=== PATIENT | female | born 1945 | race Caucasian/White ===

== ENCOUNTER 2019-12-10 07:40 | Outpatient (CLI) | payer MEDICARE, SELFPAY ==
[2019-12-10 08:12] LABS: Alanine Aminotransferase 25 U/L (4-35); Albumin Level 4.2 g/dL (3.5-5.1); Alkaline Phosphatase 105 U/L (38-126); Aspartate Amino Transferase 36 U/L (14-36); Bilirubin,Total 0.5 mg/dL (0.2-1.3); Blood Urea Nitrogen 16 mg/dL (7-17); Calcium 8.7 mg/dL (8.4-10.2); Carbon Dioxide 31 mmol/L (22-30); Chloride 102 mmol/L (98-107); Estimated Glomerular Filt Rate > 60; Glucose 91 mg/dL (65-105); Potassium 3.4 mmol/L (3.4-5.0); Sodium 138 mmol/L (137-145)
== END 2019-12-10 07:41 | disposition home or self-care (01) ==
PROVIDERS: PCP Family Medicine; Visit Provider Family Medicine
DX: I10 Essential (primary) hypertension (principal)
CPT/HCPCS: 36415; 80053

== ENCOUNTER 2020-08-04 15:32 | Outpatient (CLI) | payer MEDICARE, SELFPAY ==
[2020-08-04 16:02] LABS: Hematocrit 41.6 % (37.0-47.0); Hemoglobin 13.6 g/dL (12.0-15.0); Mean Corpuscular HGB Conc 32.7 g/dl (32-36); Mean Corpuscular Hemoglobin 29.2 pg (26-34); Mean Corpuscular Volume 89.5 fl (80-100); Mean Platelet Volume 9.7 fl (7.4-10.4); Platelet Count Result 255 k/mm3 (150-375); Red Blood Count 4.65 M/mm3 (4.2-5.4); Red Cell Distribution Width 12.6 % (11.5-14.5); White Blood Count 6.3 K/mm3 (4.5-10.0)
[2020-08-04 16:16] LABS: Alanine Aminotransferase 22 U/L (4-35); Albumin Level 4.4 g/dL (3.5-5.1); Alkaline Phosphatase 116 U/L (38-126); Anion Gap 6 mmol/L (8-16); Aspartate Amino Transferase 31 U/L (14-36); Bilirubin,Total 0.6 mg/dL (0.2-1.3); Blood Urea Nitrogen 15 mg/dL (7-17); Calcium 9.2 mg/dL (8.4-10.2); Carbon Dioxide 32 mmol/L (22-30); Chloride 103 mmol/L (98-107); Cholesterol 206 mg/dL (0-200); Estimated Glomerular Filt Rate > 60; Glucose 124 mg/dL (65-105); HDL Direct 100 mg/dL; Potassium 3.7 mmol/L (3.4-5.0); Sodium 141 mmol/L (137-145); Triglycerides 46 mg/dL (<150)
[2020-08-04 16:27] LABS: LDL Cholesterol Direct 86 mg/dL
[2020-08-04 16:32] LABS: Add Urine Microscopic? NO; Appearance Urine Clear (Clear); Bilirubin Urine Negative (Negative); Blood Urine Negative (Negative); Color Urine Yellow (Yellow); Glucose Urine UA Negative (Negative); Ketones Urine Negative (Negative); Leukocyte Esterase Ur Negative LEU/UL (NEGATIVE); Nitrate Urine Negative (Negative); Protein Urine Negative (Negative); Specific Grav Ur 1.015 (1.001-1.035); Urobilinogen Urine Negative mg/dL (<2.0)
[2020-08-04 19:00] LABS: Hemoglobin A1C 5.6 % (<5.7)
== END 2020-08-04 15:33 | disposition home or self-care (01) ==
LOC: ANHLAB 15:37
PROVIDERS: PCP Family Medicine; Visit Provider Family Medicine
DX: E78.2 Mixed hyperlipidemia (principal); R73.01 Impaired fasting glucose; I10 Essential (primary) hypertension
CPT/HCPCS: 36415; 80053; 80061; 81003; 83036; 84443; 85027

== ENCOUNTER 2020-08-19 12:54 | Outpatient (CLI) | payer MEDICARE, SELFPAY ==
--- NOTE | ~2020-08-19 | CT_ITS ---
EXAMINATION: CT brain wo con DATE: 08/19/2020 13:19 INDICATION: Syncopal episodes, collapse TECHNIQUE: Computed tomography (CT) of the head was performed without intravenous contrast. The mA wa s adjusted according to patient size. Iterative reconstruction technique was employed. Exam dose: 60 5.33 mGy-cm total exam DLP. COMPARISON: None FINDINGS: Left vertebral artery and bilateral carotid siphon internal carotid artery calcifications. Minimal bilateral basal ganglia calcification. No intracranial mass lesion or hemorrhage or cerebrovascular accident. No midline shift or mass effec t. Normal ventricular size. No subdural or epidural hematoma. No fracture or bone destruction of the cranial vault. Included paranasal sinuses and mastoid air cells are normally developed and aerated. IMPRESSION: Cerebral atherosclerosis; no acute intracranial finding Reviewed, dictated and finalized at Location A. Reviewed, dictated and finalized at location B. ET STONE INSERTER
--- NOTE | ~2020-08-19 | US_ITS ---
EXAMINATION: US carotid duplex BI DATE: 08/19/2020 13:36 INDICATION: Syncope and collapse. Cerebral atherosclerosis. TECHNIQUE: Grayscale, color Doppler, and pulsed Doppler images of the cervical carotid arteries were obtained. The degree of vessel stenosis is placed in one of the following categories: normal, <50%, 5 0-69%, >=70% but less than near-occlusion, near-occlusion, or total occlusion. Note that percent sten osis relative to normal distal artery lumen diameter is indirectly measured from velocity measurement s as described by Nate, et al. Radiology 2003; 229:340-346. COMPARISON: None. FINDINGS: RIGHT: The right common carotid artery (CCA) peak systolic velocity (PSV) is 96 cm/s. The right internal car otid artery (ICA) PSV is 109 cm/s. The right ICA end-diastolic velocity (EDV) is 36 cm/s. The right I CA/CCA PSV ratio is 1.14. Grayscale and color Doppler images yield an estimate of <50% diameter reduc tion from plaque in the ICA. The external carotid artery (ECA) PSV is 108 cm/s. There is antegrade fl ow in the right vertebral artery. LEFT: The left CCA PSV is 113 cm/s. The left ICA PSV is 124 cm/s. The left ICA EDV is 42 cm/s. The left ICA /CCA PSV ratio is 1.10. Grayscale and color Doppler images yield an estimate of <50% diameter reducti on from plaque in the ICA. The ECA PSV is 97 cm/s. There is antegrade flow in the left vertebral odalys ry. IMPRESSION: 1. <50% stenosis in the right internal carotid artery. 2. <50% stenosis in the left internal carotid artery. Reviewed, dictated and finalized at location A. LOCK COLLAR SETTER
== END 2020-08-19 12:55 | disposition home or self-care (01) ==
LOC: ANHIMG 13:03
PROVIDERS: PCP Family Medicine; Visit Provider Physician Assistant
DX: R55 Syncope and collapse (principal); R42 Dizziness and giddiness; I65.23 Occlusion and stenosis of bilateral carotid arteries; I67.2 Cerebral atherosclerosis
CPT/HCPCS: 70450; 93880

== ENCOUNTER 2021-04-20 08:25 | Outpatient (CLI) | payer MEDICARE, SELFPAY ==
[2021-04-20 09:03] LABS: Basophils Percent Auto 0.2 % (0.2-1.2); Eosinophils Absolute Auto 0.2 K/mm3 (0-0.3); Eosinophils Percent Auto 2.8 % (0-4.4); Hematocrit 40.5 % (37.0-47.0); Hemoglobin 13.2 g/dL (12.0-15.0); Immature Granulocyte Absolute 0.01 K/mm3 (0.00-0.031); Immature Granulocyte Percent A 0.2 % (0-0.5); Lymphocytes Absolute Auto 1.62 K/mm3 (0.9-3.2); Lymphocytes Percent Auto 24.9 % (18.3-44.2); Mean Corpuscular HGB Conc 32.6 g/dl (32-36); Mean Corpuscular Hemoglobin 29.7 pg (26-34); Mean Corpuscular Volume 91.2 fl (80-100); Mean Platelet Volume 9.5 fl (7.4-10.4); Monocytes Absolute Auto 0.5 K/mm3 (0.1-0.6); Monocytes Percent Auto 7.4 % (2.6-8.5); Neutrophils Absolute Auto 4.2 K/mm3 (1.3-6.7); Neutrophils Percent Auto 64.5 % (45.5-73.1); Platelet Count Result 307 k/mm3 (150-375); Red Blood Count 4.44 M/mm3 (4.2-5.4); Red Cell Distribution Width 12.7 % (11.5-14.5); White Blood Count 6.5 K/mm3 (4.5-10.0)
[2021-04-20 09:03] LABS: Add Urine Microscopic? NO; Appearance Urine Clear (Clear); Bilirubin Urine Negative (Negative); Blood Urine Negative (Negative); Color Urine Yellow (Yellow); Glucose Urine UA Negative (Negative); Ketones Urine Negative (Negative); Leukocyte Esterase Ur Negative LEU/UL (NEGATIVE); Nitrate Urine Negative (Negative); Protein Urine Negative (Negative); Specific Grav Ur 1.015 (1.001-1.035); Urobilinogen Urine Negative mg/dL (<2.0)
[2021-04-20 09:12] LABS: Alanine Aminotransferase 27 U/L (4-35); Albumin Level 4.5 g/dL (3.5-5.1); Alkaline Phosphatase 126 U/L (38-126); Anion Gap 10 mmol/L (8-16); Aspartate Amino Transferase 34 U/L (14-36); Bilirubin,Total 0.6 mg/dL (0.2-1.3); Blood Urea Nitrogen 17 mg/dL (7-17); Calcium 9.2 mg/dL (8.4-10.2); Carbon Dioxide 30 mmol/L (22-30); Chloride 100 mmol/L (98-107); Cholesterol 215 mg/dL (0-200); Estimated Glomerular Filt Rate > 60; Glucose 92 mg/dL (65-110); HDL Direct 90 mg/dL; Potassium 3.5 mmol/L (3.4-5.0); Sodium 140 mmol/L (137-145); Triglycerides 72 mg/dL (<150)
[2021-04-20 09:23] LABS: Hemoglobin A1C 5.8 % (<5.7); LDL Cholesterol Direct 98 mg/dL
== END 2021-04-20 08:26 | disposition home or self-care (01) ==
LOC: ANHLAB 08:29
PROVIDERS: PCP Family Medicine; Visit Provider Physician Assistant
DX: K21.9 Gastro-esophageal reflux disease without esophagitis (principal); K57.30 Diverticulosis of large intestine without perforation or abscess without bleeding; I10 Essential (primary) hypertension; E78.5 Hyperlipidemia, unspecified; R73.01 Impaired fasting glucose; M15.9 Polyosteoarthritis, unspecified; E78.00 Pure hypercholesterolemia, unspecified; Z00.00 Encounter for general adult medical examination without abnormal findings
CPT/HCPCS: 36415; 80053; 80061; 81003; 83036; 84443; 85025

== ENCOUNTER 2021-09-12 09:02 | Outpatient (CLI) | payer MEDICARE, SELFPAY ==
--- NOTE | ~2021-09-12 | XR_ITS ---
XR knee LT min 4V 09/12/2021 09:18 Indication: Chronic knee pain Procedure: 4 views left knee Comparison: 10/07/2010 Findings: Moderate tricompartment osteoarthritis. No fracture, subluxation or dislocation. No signifi cant joint effusion. No foreign bodies. Impression: 1: Moderate tricompartment osteoarthritis. Reviewed, dictated and finalized at location B. Impression: 1: Moderate tricompartment osteoarthritis.
== END 2021-09-12 09:03 | disposition home or self-care (01) ==
PROVIDERS: PCP Family Medicine; Visit Provider Physician Assistant
DX: M17.12 Unilateral primary osteoarthritis, left knee (principal)
CPT/HCPCS: 73564

== ENCOUNTER 2021-10-21 09:34 | Outpatient (CLI) | payer MEDICARE, SELFPAY ==
[2021-10-21 10:26] LABS: Alanine Aminotransferase 24 U/L (4-35); Albumin Level 4.2 g/dL (3.5-5.1); Alkaline Phosphatase 109 U/L (38-126); Anion Gap 6 mmol/L (8-16); Aspartate Amino Transferase 32 U/L (14-36); Bilirubin,Total 0.3 mg/dL (0.2-1.3); Blood Urea Nitrogen 17 mg/dL (7-17); Calcium 8.7 mg/dL (8.4-10.2); Carbon Dioxide 32 mmol/L (22-30); Chloride 102 mmol/L (98-107); Estimated Glomerular Filt Rate > 60; Glucose 112 mg/dL (65-110); Potassium 3.7 mmol/L (3.4-5.0); Sodium 140 mmol/L (137-145)
[2021-10-21 10:28] LABS: Hemoglobin A1C 5.5 % (<5.7)
== END 2021-10-21 09:35 | disposition home or self-care (01) ==
PROVIDERS: PCP Family Medicine; Visit Provider Physician Assistant
DX: R73.01 Impaired fasting glucose (principal); I10 Essential (primary) hypertension
CPT/HCPCS: 36415; 80053; 83036

== ENCOUNTER 2021-11-14 09:53 | Outpatient (CLI) | payer MEDICARE, SELFPAY ==
[2021-11-14 10:48] LABS: Appearance Urine Slightly Cloudy (Clear); Bilirubin Urine Negative (Negative); Blood Urine 3+ (Negative); Glucose Urine UA Negative (Negative); Ketones Urine Negative (Negative); Leukocyte Esterase Ur 3+ LEU/UL (NEGATIVE); Nitrate Urine Negative (Negative); Protein Urine Negative (Negative); Urobilinogen Urine 0.2 mg/dL (<2.0)
[2021-11-14 10:58] LABS: Add Urine Microscopic? YES; Color Urine Light Yellow (Yellow)
[2021-11-14 11:23] LABS: Bacteria Urine Trace /hpf; Squamous Epithelial Cell Urine Rare /hpf (Few); WBC Urine >75 /hpf (0-3)
== END 2021-11-14 09:54 | disposition home or self-care (01) ==
LOC: ANHLAB 09:57
PROVIDERS: PCP Family Medicine; Visit Provider Nurse Practitioner Family
DX: N39.0 Urinary tract infection, site not specified (principal)
CPT/HCPCS: 81001; 87077; 87086; 87186

== ENCOUNTER 2021-12-05 08:38 | Outpatient (CLI) | payer MEDICARE, SELFPAY ==
--- NOTE | ~2021-12-05 | DEXA_ITS ---
Bone Density Report Name: MADISON HENRY Age: 76 Sex: Female Ethnicity: White Date of : 1945 Indication: postmenopausal; screening for osteoporosis; height loss; prior fracture; hysterectomy; Referring Provider: HAYDEE GAN Study: Bone densitometry was performed. Exam Date: December 05, 2021 Accession number: [id number] Bone Density: Region BMD T-score Z-score Classification AP Spine(L1-L4) 0.848 -1.8 0.7 Osteopenia Femoral Neck (Left) 0.677 -1.6 0.6 Osteopenia Total Hip (Left) 0.835 -0.9 1.0 Normal Femoral Neck (Right) 0.711 -1.2 0.9 Osteopenia Total Hip (Right) 0.786 -1.3 0.6 Osteopenia Total Hip Mean 0.811 -1.1 0.8 Osteopenia World Health Organization criteria for BMD impression classify patients as: Normal (T-score at or above -1.0), Osteopenia (T-score between -1.0 and -2.5), or Osteoporosis (T-score at or below -2.5). 10-year Fracture Risk(1): Major Osteoporotic Fracture 18% Hip Fracture 3.6% Reported Risk Factors: [place] (), Neck BMD=0.677, BMI=24.5, previous fracture (1) FRAX(R) Version 3.08. Fracture probability calculated for an untreated patient. Fracture probability may be lower if the patient has received treatment. Clinical Information Provided by Patient: Has had a low trauma fracture Has used the following medications: Vitamin D, Calcium Has the following medical conditions: Hysterectomy Patient maximum height was 64 Menopause Age: 56 Drinks caffeinated beverages Onset of menses at age 12 Number of children 2 Impression: The patient has low bone mass, based on the Total Spine T-score. The patient has an estimated ten-year risk of hip fracture of 3.6% and an estimated ten-year risk of major fracture of 18%, based on the WHO FRAX algorithm. The patient has risk factors, including: previous fracture. Discussion: BONE DENSITY IS LOW AT ONE OR MORE SKELETAL SITES. THE PATIENT'S BMD AND CLINICAL RISK FACTORS CONTRIBUTE TO THIS PATIENT'S INCREASED RISK OF FRACTURE. This patient's lowest T-score is low at one or more skeletal sites. It meets the World Health Organization's (WHO) criteria for ?low bone mass? (T-score between -1.0 and -2.5). The patient's 10-year risk of hip fracture as calculated by FRAX exceeds the threshold where pharmacological therapy is recommended by the National Osteoporosis Foundation (NOF). However, all treatment decisions require clinical judgment and consideration of individual patient factors, including patient preferences, comorbidities, previous drug use, risk factors not captured in the FRAX model (e.g., frailty, falls, vitamin D deficiency, increased bone turnover, interval significant decline in bone density) and possible under or overestimation of fracture risk by FRAX. The patient should follow a healthful lifestyle
== END 2021-12-05 08:39 | disposition home or self-care (01) ==
LOC: ANHIMG 08:41
PROVIDERS: PCP Family Medicine; Visit Provider Physician Assistant
DX: Z78.0 Asymptomatic menopausal state (principal); M85.88 Other specified disorders of bone density and structure, other site; M85.851 Other specified disorders of bone density and structure, right thigh; M85.852 Other specified disorders of bone density and structure, left thigh
CPT/HCPCS: 77080

== ENCOUNTER 2021-12-24 22:06 | Emergency (ER) | payer MEDICARE, SELFPAY ==
--- NOTE | ~2021-12-24 | CT_ITS ---
EXAMINATION: CT shoulder LT wo con DATE: 12/24/2021 23:21 INDICATION: Left shoulder pain, initial encounter TECHNIQUE: Computed tomography (CT) of the left shoulder was performed without intravenous contrast. The dose-length product (DLP) was 137.85 mGy-cm. Automated exposure control and iterative reconstruct ion technique were employed. COMPARISON: None FINDINGS: There is an acute, traumatic, comminuted, closed fracture of the inferior glenoid rim. The fracture fragment is caudally displaced. No additional fracture is identified. The visualized portion s of the thorax are unremarkable. IMPRESSION: 1. Acute displaced and comminuted fracture of the inferior glenoid rim. Reviewed, dictated and finalized at location A.
--- NOTE | ~2021-12-24 | XR_ITS ---
EXAMINATION: XR shoulder LT min 2V INDICATION: Left shoulder pain, initial encounter TECHNIQUE: Four views of the left shoulder are submitted. COMPARISON: None FINDINGS: There is an acute fracture along the inferior margin of the glenoid. Mild osteoarthritis is noted in the acromioclavicular and glenohumeral joints. Soft tissues are unremarkable. IMPRESSION: 1. Acute fracture along the inferior glenoid. Reviewed, dictated and finalized at location A.
[2021-12-24 22:10] VITALS: BP 157/72; PULSE 70; RESP 16; TEMP 36.2; O2SAT 96
--- NOTE | 2021-12-24 23:06 | PC.NURSE ---
Patient taken to CT via w/c.
--- NOTE | 2021-12-24 23:07 | ED.GENADULT ---
HPI - General Adult General Chief complaint: Extremity Injury, Upper Stated complaint: I think I dislocated my shoulder Time Seen by Provider: 12/24/21 22:29 History of Present Illness HPI narrative: Patient is a 76-year-old female that presents to the emergency department with chief complaint of left shoulder injury. The patient reports she [place] the bowling alley and was bowling the bowling ball went 1 direction and her shoulder and body went the other direction. Patient states she landed on her left shoulder reports pain with range of motion. Patient denies numbness or tingling denies head injury denies loss of consciousness. Patient states that she is concerned that she may have dislocated her shoulder. Related Data Home Medications Medication Instructions Recorded Confirmed aspirin 81 mg tablet,delayed 81 mg PO DAILY 06/10/19 10/27/21 release (Adult Aspirin Regimen) Allergies Allergy/AdvReac Type Severity Reaction Status Date / Time No Known Allergies Allergy Verified 12/24/21 22:11 Review of Systems Review of Systems: A 10 system review of systems was completed on the patient and is negative except for what is stated in the HPI. Nursing and ancillary documentation was reviewed. [facility] Past Medical History Medical History GERD (gastroesophageal reflux disease) SVT (supraventricular tachycardia) Surgical History Surgical History History of bunionectomy History of cystocele Status post hysterectomy with oophorectomy Status post tonsillectomy Tibia/fibula fracture Family History Family History Sibling Carcinoma of colon Family history of diabetes mellitus in first degree relative Father Malignant neoplasm of prostate Family history of diabetes mellitus in first degree relative Mother Family history of diabetes mellitus in first degree relative Other Cerebrovascular accident Diabetes mellitus Family history of osteoarthritis Hypertension Social History Social History Second hand tobacco smoke exposure: No Alcohol intake: current Alcohol use details: rare Substance use: never Substance use type: does not use Gender identity (if verbalized by the patient): Female Sexual Orientation (if Verbalized by the Patient): Straight or Heterosexual Exam Narrative: GENERAL: Well-appearing, well-nourished, and in no acute distress. HEAD: Normocephalic, atraumatic. EYES: PERRLA and EOMI. ENT: Nares clear, no rhinorrhea or epistaxis. Mucous membranes moist. NECK: Supple. CHEST: Clear to auscultation. No respiratory distress. HEART: Regular rate and rhythm. No murmur heard. Normal peripheral pulses. ABDOMEN: Soft, nontender, nondistended, normal active bowel sounds. EXTREMITIES: Decreased range of motion of the left shoulder. No edema. SKIN: Warm, dry, no rash. NEURO: No focal deficits. Alert and oriented x3. PSYCH: Normal mood and affect. Course Vital Signs Vital signs: Vital Signs Temperature 36.2 C L 12/24/21 22:10 Pulse Rate 70 12/24/21 22:10 Respiratory Rate 16 12/24/21 22:10 Blood Pressure 157/72 H 12/24/21 22:10 Pulse Oximetry 96 12/24/21 22:10 Oxygen Delivery Room Air 12/24/21 22:10 Temperature 36.5 C 12/25/21 00:01 Pulse Rate 65 12/25/21 00:01 Respiratory Rate 17 12/25/21 00:01 Blood Pressure 158/86 H 12/25/21 00:01 Pulse Oximetry 97 12/25/21 00:01 Oxygen Delivery Room Air 12/24/21 22:10 Medical Decision Making Vital Signs Vital Signs: Vital Signs Temperature 36.2 C L 12/24/21 22:10 Pulse Rate 70 12/24/21 22:10 Respiratory Rate 16 12/24/21 22:10 Blood Pressure 157/72 H 12/24/21 22:10 Pulse Oximetry 96 12/24/21 22:10 Oxygen Delivery Room Air
[2021-12-25 00:01] VITALS: BP 158/86; PULSE 65; RESP 17; TEMP 36.5; O2SAT 97
[2021-12-25] MEDS: HYDROcodone/acetaminophen (*CRX) 5-325 MG TABLET 1 TAB PO (00:21)
== END 2021-12-25 00:48 | disposition home or self-care (01) ==
PROVIDERS: Emergency Provider Emergency Medicine; PCP Family Medicine
DX: S42.142A Displaced fracture of glenoid cavity of scapula, left shoulder, initial encounter for closed fracture (principal); K21.9 Gastro-esophageal reflux disease without esophagitis; Z90.710 Acquired absence of both cervix and uterus; Z79.82 Long term (current) use of aspirin; W18.39XA Other fall on same level, initial encounter; Y93.54 Activity, bowling
CPT/HCPCS: 73030; 73200; 99284; A4565; A9270

== ENCOUNTER 2022-04-04 08:00 | Outpatient (RCR) | payer MEDICARE, SELFPAY ==
[2022-02-28 14:50] VITALS: BP_SYST 90
--- NOTE | 2022-02-28 16:05 | PTOPEVAL1 ---
Evaluation Information Assessment Status Evaluation Diagnosis L displaced fracture of glenoid cavity of scapula Onset 12-24-21 Subjective Information after fall in November used a sling for arm support, at last dr visit, was told can take it off, but she still wears for pain; have been doing arm dangling exercises only; cannot use L arm-- when arm hangs down it hurts and when try to use arm at all, it hurts; Reported Pain Level Pain Score 2: Self Report Additional Pain Score Comments issues getting comfortable for sleeping--cannot tolerate anything touching her L scapula--go between couch and recliner; can sleep less than 1 hour when wake up; Normal for her is about 2 hr; have not used heat/ice --instruct PRN use; Assessment PT Clinical Summary Dominga has the diagnosis of L scapular fracture s/p fall in November; she has been immobilized with a sling and now orders to begin exercises, progress as tolerated. She reports she cannot use her L arm for home and self care tasks,with decreased sleeping tolerance due to pain. And voiced frustration about the continued pain and inability to use her arm. Prior to fall, was active and did not have any restrictions, worked 40 hr/week at [employer]. With the evaluation she has decreased strength and ROM of L shoulder, with all motions increasing her pain. Active shoulder flexion and abduction are 70' and passive is 90'. Skilled PT services are indicated to increase the strength and ROM of her L shoulder, with modalities for pain control and education for home exercises, posture and pain control. Plan of Care Interventions Electrical Stimulation,Hot Pack/Cold Pack,Manual Therapy,Therapeutic Activities,Therapeutic Exercise, pt education Other Interventions cold laser PT Services Indicated Yes Treatment Frequency and 2x/wk for 5 weeks, or less if goals achieved Duration These treatments will address the objective and functional deficits as defined above. The patient will be advanced safely and appropriately in order for the patient to progress towards his/her prior level of function. Additional exercises will be introduced and as well as a comprehensive home exercise program upon discharge, if needed, ?to ensure carryover of functional gains achieved in the clinic. This treatment plan has been reviewed and agreement upon by the patient.
[2022-04-04 08:00] VITALS: BP_SYST 140
--- NOTE | 2022-04-04 08:43 | PTOPDC ---
Assessment and note entered by Page Crawley, PT Evaluation Information Assessment Status Discharge Diagnosis L displaced fracture of glenoid cavity of scapula Onset 12-24-21 Subjective Information Pat reports: shoulder is doing great; reaching behind back is the only one that still gives me trouble; plan to go to work tonight; see this afternoon and going to get a return to work release; will continue with the exercises at home ; ready to be released from therapy; Reported Pain Level Pain Score Self Report L shoulder Additional Pain Score Comments pain range 0-4/10; sleeping about 2 hours at time -which is her norm; increase pain with lying on her L side & over use of arm; to decrease pain, using heating pad, rest, tylenol arthritis PRN; taking meloxicam for knee OA; reports can use arm in the kitchen as long as able without hurting; can put hair up in pony tail; Assessment PT Clinical Summary Valeria has received 8 PT sessions for her L shoulder. Compared to the initial evaluation, she has improved in all areas: decrease pain rating at low and high rating; improved sleeping tolerance; use of UE for home and self care tasks; ROM and strength in all 4 directions; progression of HEP and posture of shoulder; The goals were partially achieved. She is independent with her home exercise program and wants to be d/c from PT, to continue with her exercises on her own and return to work. Discharge PT. Plan of Care PT Services Indicated No
== END 2022-04-04 11:40 | disposition home or self-care (01) ==
LOC: ANHPT 08:00
PROVIDERS: PCP Family Medicine; Visit Provider Orthopaedic Surgery
DX: S42.14 Fracture of glenoid cavity of scapula (principal); S42.15 Fracture of neck of scapula
CPT/HCPCS: 97110; 97112; 97140; 97161

== ENCOUNTER 2022-04-27 07:16 | Outpatient (CLI) | payer MEDICARE, SELFPAY ==
[2022-04-27 07:54] LABS: Basophils Percent Auto 0.2 % (0.2-1.2); Eosinophils Absolute Auto 0.2 K/mm3 (0-0.3); Eosinophils Percent Auto 3.7 % (0-4.4); Hematocrit 37.2 % (37.0-47.0); Hemoglobin 12.2 g/dL (12.0-15.0); Immature Granulocyte Absolute 0.01 K/mm3 (0.00-0.031); Immature Granulocyte Percent A 0.2 % (0-0.5); Lymphocytes Absolute Auto 1.37 K/mm3 (0.9-3.2); Lymphocytes Percent Auto 26.4 % (18.3-44.2); Mean Corpuscular HGB Conc 32.8 g/dl (32-36); Mean Corpuscular Hemoglobin 30.2 pg (26-34); Mean Corpuscular Volume 92.1 fl (80-100); Mean Platelet Volume 9.3 fl (7.4-10.4); Monocytes Absolute Auto 0.4 K/mm3 (0.1-0.6); Monocytes Percent Auto 6.9 % (2.6-8.5); Neutrophils Absolute Auto 3.3 K/mm3 (1.3-6.7); Neutrophils Percent Auto 62.6 % (45.5-73.1); Platelet Count Result 272 k/mm3 (150-375); Red Blood Count 4.04 M/mm3 (4.2-5.4); Red Cell Distribution Width 13.7 % (11.5-14.5); White Blood Count 5.2 K/mm3 (4.5-10.0)
[2022-04-27 08:04] LABS: Alanine Aminotransferase 50 U/L (6-35); Albumin Level 4.6 g/dL (3.5-5.1); Alkaline Phosphatase 124 U/L (38-126); Anion Gap 11 mmol/L (8-16); Aspartate Amino Transferase 42 U/L (14-36); Bilirubin,Total 0.5 mg/dL (0.2-1.3); Blood Urea Nitrogen 18 mg/dL (7-17); Calcium 8.8 mg/dL (8.4-10.2); Carbon Dioxide 27 mmol/L (22-30); Chloride 103 mmol/L (98-107); Cholesterol 212 mg/dL (0-200); Estimated Glomerular Filt Rate > 60; Glucose 94 mg/dL (65-110); HDL Direct 91 mg/dL; Potassium 3.3 mmol/L (3.4-5.0); Sodium 141 mmol/L (137-145); Triglycerides 82 mg/dL (<150)
[2022-04-27 08:08] LABS: Hemoglobin A1C 5.8 % (<5.7)
[2022-04-27 08:15] LABS: LDL Cholesterol Direct 74 mg/dL
[2022-04-27 08:20] LABS: Add Urine Microscopic? YES; Appearance Urine Clear (Clear); Bilirubin Urine Negative (Negative); Blood Urine 1+ (Negative); Color Urine Straw (Yellow); Glucose Urine UA Negative (Negative); Ketones Urine Negative (Negative); Leukocyte Esterase Ur Trace LEU/UL (NEGATIVE); Nitrate Urine Negative (Negative); Protein Urine Negative (Negative); RBC Urine 0-2 /hpf (0-2); Specific Grav Ur 1.009 (1.001-1.035); Squamous Epithelial Cell Urine Rare /hpf (Few); Urobilinogen Urine Negative mg/dL (<2.0); WBC Clumps Urine Present /HPF
== END 2022-04-27 07:17 | disposition home or self-care (01) ==
LOC: ANHLAB 07:19
PROVIDERS: PCP Family Medicine; Visit Provider Physician Assistant
DX: E78.5 Hyperlipidemia, unspecified (principal); I10 Essential (primary) hypertension; R73.01 Impaired fasting glucose
CPT/HCPCS: 36415; 80053; 80061; 81001; 83036; 84443; 85025

== ENCOUNTER 2022-06-05 06:32 | Outpatient (CLI) | payer MEDICARE, SELFPAY ==
[2022-06-05 07:22] LABS: Basophils Percent Auto 0.2 % (0.2-1.2); Eosinophils Absolute Auto 0.2 K/mm3 (0-0.3); Eosinophils Percent Auto 3.5 % (0-4.4); Hematocrit 36.5 % (37.0-47.0); Hemoglobin 11.9 g/dL (12.0-15.0); Immature Granulocyte Absolute 0.01 K/mm3 (0.00-0.031); Immature Granulocyte Percent A 0.2 % (0-0.5); Lymphocytes Absolute Auto 1.46 K/mm3 (0.9-3.2); Lymphocytes Percent Auto 24.2 % (18.3-44.2); Mean Corpuscular HGB Conc 32.6 g/dl (32-36); Mean Corpuscular Hemoglobin 29.2 pg (26-34); Mean Corpuscular Volume 89.7 fl (80-100); Mean Platelet Volume 9.7 fl (7.4-10.4); Monocytes Absolute Auto 0.5 K/mm3 (0.1-0.6); Neutrophils Absolute Auto 3.8 K/mm3 (1.3-6.7); Neutrophils Percent Auto 62.9 % (45.5-73.1); Platelet Count Result 320 k/mm3 (150-375); Red Blood Count 4.07 M/mm3 (4.2-5.4); Red Cell Distribution Width 12.7 % (11.5-14.5)
[2022-06-05 07:41] LABS: Alanine Aminotransferase 21 U/L (6-35); Albumin Level 4.4 g/dL (3.5-5.1); Alkaline Phosphatase 101 U/L (38-126); Anion Gap 7 mmol/L (8-16); Aspartate Amino Transferase 27 U/L (14-36); Bilirubin,Total 0.4 mg/dL (0.2-1.3); Blood Urea Nitrogen 18 mg/dL (7-17); Calcium 8.5 mg/dL (8.4-10.2); Carbon Dioxide 28 mmol/L (22-30); Chloride 100 mmol/L (98-107); Estimated Glomerular Filt Rate > 60; Glucose 90 mg/dL (65-110); Potassium 4.1 mmol/L (3.4-5.0); Sodium 135 mmol/L (137-145)
== END 2022-06-05 06:33 | disposition home or self-care (01) ==
LOC: ANHLAB 06:35
PROVIDERS: PCP Family Medicine; Visit Provider Physician Assistant
DX: I10 Essential (primary) hypertension (principal); R23.3 Spontaneous ecchymoses
CPT/HCPCS: 36415; 80053; 85025

== ENCOUNTER 2022-09-13 07:23 | Outpatient (CLI) | payer MEDICARE, SELFPAY ==
[2022-09-13 08:20] LABS: Basophils Percent Auto 0.2 % (0.2-1.2); Eosinophils Absolute Auto 0.3 K/mm3 (0-0.3); Eosinophils Percent Auto 6.1 % (0-4.4); Hematocrit 37.1 % (37.0-47.0); Hemoglobin 11.8 g/dL (12.0-15.0); Immature Granulocyte Absolute 0.02 K/mm3 (0.00-0.031); Immature Granulocyte Percent A 0.4 % (0-0.5); Lymphocytes Absolute Auto 1.43 K/mm3 (0.9-3.2); Lymphocytes Percent Auto 28.2 % (18.3-44.2); Mean Corpuscular HGB Conc 31.8 g/dl (32-36); Mean Corpuscular Hemoglobin 28.5 pg (26-34); Mean Corpuscular Volume 89.6 fl (80-100); Mean Platelet Volume 9.8 fl (7.4-10.4); Monocytes Absolute Auto 0.4 K/mm3 (0.1-0.6); Monocytes Percent Auto 8.7 % (2.6-8.5); Neutrophils Absolute Auto 2.9 K/mm3 (1.3-6.7); Neutrophils Percent Auto 56.4 % (45.5-73.1); Platelet Count Result 313 k/mm3 (150-375); Red Blood Count 4.14 M/mm3 (4.2-5.4); White Blood Count 5.1 K/mm3 (4.5-10.0)
[2022-09-13 08:32] LABS: Iron 49 ug/dL (37-170)
[2022-09-13 08:41] LABS: Percent Iron Saturation 13 % (20-50)
[2022-09-13 09:22] LABS: Folic Acid 11.3 ng/mL (2.76->20)
== END 2022-09-13 07:24 | disposition home or self-care (01) ==
LOC: ANHLAB 07:26
PROVIDERS: PCP Family Medicine; Visit Provider Physician Assistant
DX: D64.9 Anemia, unspecified (principal)
CPT/HCPCS: 36415; 82607; 82728; 82746; 83540; 83550; 85025

== ENCOUNTER 2022-12-12 08:07 | Outpatient (CLI) | payer MEDICARE, SELFPAY ==
[2022-12-12 08:36] LABS: Basophils Percent Auto 0.1 % (0.2-1.2); Eosinophils Absolute Auto 0.4 K/mm3 (0-0.3); Eosinophils Percent Auto 6.3 % (0-4.4); Hematocrit 38.1 % (37.0-47.0); Hemoglobin 12.2 g/dL (12.0-15.0); Immature Granulocyte Absolute 0.01 K/mm3 (0.00-0.031); Immature Granulocyte Percent A 0.1 % (0-0.5); Lymphocytes Absolute Auto 1.47 K/mm3 (0.9-3.2); Lymphocytes Percent Auto 21.6 % (18.3-44.2); Mean Corpuscular Hemoglobin 29.1 pg (26-34); Mean Corpuscular Volume 90.9 fl (80-100); Mean Platelet Volume 9.7 fl (7.4-10.4); Monocytes Absolute Auto 0.5 K/mm3 (0.1-0.6); Monocytes Percent Auto 7.2 % (2.6-8.5); Neutrophils Absolute Auto 4.4 K/mm3 (1.3-6.7); Neutrophils Percent Auto 64.7 % (45.5-73.1); Platelet Count Result 281 k/mm3 (150-375); Red Blood Count 4.19 M/mm3 (4.2-5.4); Red Cell Distribution Width 13.4 % (11.5-14.5); White Blood Count 6.8 K/mm3 (4.5-10.0)
[2022-12-12 08:45] LABS: Hemoglobin A1C 5.6 % (<5.7)
[2022-12-12 08:49] LABS: Alanine Aminotransferase 84 U/L (6-35); Albumin Level 4.4 g/dL (3.5-5.1); Alkaline Phosphatase 139 U/L (38-126); Anion Gap 6 mmol/L (8-16); Aspartate Amino Transferase 72 U/L (14-36); Bilirubin,Total 0.3 mg/dL (0.2-1.3); Blood Urea Nitrogen 20 mg/dL (7-17); Calcium 8.5 mg/dL (8.4-10.2); Carbon Dioxide 31 mmol/L (22-30); Chloride 102 mmol/L (98-107); Estimated Glomerular Filt Rate > 60; Glucose 113 mg/dL (65-110); Potassium 3.5 mmol/L (3.4-5.0); Sodium 139 mmol/L (137-145)
[2022-12-12 08:59] LABS: Iron 65 ug/dL (37-170)
[2022-12-12 09:07] LABS: Percent Iron Saturation 17 % (20-50)
[2022-12-12 09:54] LABS: Folic Acid 9.4 ng/mL (2.76->20)
== END 2022-12-12 08:08 | disposition home or self-care (01) ==
LOC: ANHLAB 08:09
PROVIDERS: PCP Family Medicine; Visit Provider Physician Assistant
DX: D64.9 Anemia, unspecified (principal); E78.5 Hyperlipidemia, unspecified; R73.01 Impaired fasting glucose
CPT/HCPCS: 36415; 80053; 82607; 82728; 82746; 83036; 83540; 83550; 85025

== ENCOUNTER 2022-12-19 08:42 | Outpatient (CLI) | payer MEDICARE, SELFPAY ==
--- NOTE | ~2022-12-19 | US_ITS ---
US right upper quadrant INDICATION: Abnormal liver function tests. PROCEDURE: Realtime right upper abdominal ultrasound. COMPARISON: CT dated 11/02/2014 FINDINGS: The pancreas is normal without focal mass or pancreatic ductal dilation. Liver echotexture is normal without focal mass or intrahepatic biliary dilatation. There is normal directional flow i n the portal vein. The gallbladder is normal without stones, gallbladder wall thickening or pericholecystic fluid. Comm on bile duct measures 9.8 mm. IMPRESSION: 1: Mildly dilated common bile duct, possibly related to patient's age. Reviewed, dictated and finalized at location L.
== END 2022-12-19 08:43 | disposition home or self-care (01) ==
PROVIDERS: PCP Family Medicine; Visit Provider Physician Assistant
DX: R79.89 Other specified abnormal findings of blood chemistry (principal); K83.8 Other specified diseases of biliary tract
CPT/HCPCS: 76705

== ENCOUNTER 2023-02-06 07:21 | Outpatient (CLI) | payer MEDICARE, SELFPAY ==
[2023-02-06 08:19] LABS: Alanine Aminotransferase 55 U/L (6-35); Albumin Level 4.4 g/dL (3.5-5.1); Alkaline Phosphatase 163 U/L (38-126); Anion Gap 7 mmol/L (8-16); Aspartate Amino Transferase 58 U/L (14-36); Bilirubin,Total 0.4 mg/dL (0.2-1.3); Blood Urea Nitrogen 17 mg/dL (7-17); Calcium 8.7 mg/dL (8.4-10.2); Carbon Dioxide 30 mmol/L (22-30); Chloride 99 mmol/L (98-107); Estimated Glomerular Filt Rate > 60; Glucose 93 mg/dL (65-110); Potassium 3.8 mmol/L (3.4-5.0); Sodium 136 mmol/L (137-145)
== END 2023-02-06 07:22 | disposition home or self-care (01) ==
PROVIDERS: PCP Family Medicine; Visit Provider Physician Assistant
DX: R79.89 Other specified abnormal findings of blood chemistry (principal)
CPT/HCPCS: 36415; 80053; 82728; 86038

== ENCOUNTER 2023-02-19 08:42 | Outpatient (CLI) | payer MEDICARE, SELFPAY ==
[2023-02-19 10:27] LABS: Hepatitis B Surface Antigen Negative (Negative)
[2023-02-19 10:32] LABS: HAV RESULT Negative (Negative); Hepatitis B Core IgM Result Negative (Negative)
[2023-02-19 10:44] LABS: Hepatitis C Virus Antibody Negative (Negative)
== END 2023-02-19 08:43 | disposition home or self-care (01) ==
PROVIDERS: PCP Family Medicine; Visit Provider Family Medicine
DX: R74.8 Abnormal levels of other serum enzymes (principal); R94.5 Abnormal results of liver function studies
CPT/HCPCS: 36415; 80074

== ENCOUNTER 2023-06-07 07:15 | Outpatient (CLI) | payer MEDICARE, SELFPAY ==
[2023-06-07 07:57] LABS: Hematocrit 39.5 % (37.0-47.0); Hemoglobin 12.8 g/dL (12.0-15.0); Mean Corpuscular HGB Conc 32.4 g/dl (32-36); Mean Corpuscular Hemoglobin 29.2 pg (26-34); Mean Corpuscular Volume 90.2 fl (80-100); Mean Platelet Volume 9.5 fl (7.4-10.4); Platelet Count Result 276 k/mm3 (150-375); Red Blood Count 4.38 M/mm3 (4.2-5.4); Red Cell Distribution Width 13.4 % (11.5-14.5); White Blood Count 5.1 K/mm3 (4.5-10.0)
[2023-06-07 08:29] LABS: Alanine Aminotransferase 23 U/L (6-35); Albumin Level 4.3 g/dL (3.5-5.1); Alkaline Phosphatase 111 U/L (38-126); Anion Gap 8 mmol/L (8-16); Aspartate Amino Transferase 31 U/L (14-36); Bilirubin,Total 0.6 mg/dL (0.2-1.3); Blood Urea Nitrogen 21 mg/dL (7-17); Calcium 8.8 mg/dL (8.4-10.2); Carbon Dioxide 28 mmol/L (22-30); Chloride 104 mmol/L (98-107); Cholesterol 206 mg/dL (0-200); Estimated Glomerular Filt Rate > 60; Glucose 100 mg/dL (65-110); HDL Direct 88 mg/dL; Potassium 3.6 mmol/L (3.4-5.0); Sodium 140 mmol/L (137-145); Triglycerides 63 mg/dL (<150)
[2023-06-07 08:39] LABS: LDL Cholesterol Direct 85 mg/dL
[2023-06-07 09:01] LABS: Appearance Urine Clear (Clear); Bilirubin Urine Negative (Negative); Blood Urine Negative (Negative); Color Urine Yellow (Yellow); Glucose Urine UA Negative (Negative); Ketones Urine Negative (Negative); Leukocyte Esterase Ur Negative LEU/UL (NEGATIVE); Nitrate Urine Negative (Negative); Protein Urine Negative (Negative); Specific Grav Ur 1.021 (1.001-1.035); Urobilinogen Urine 0.2 mg/dL (<2.0); pH Urine 5.5 (5.0-9.0)
[2023-06-07 09:07] LABS: Add Urine Microscopic? NO
[2023-06-07 10:53] LABS: Hemoglobin A1C 5.6 % (<5.7)
== END 2023-06-07 07:16 | disposition home or self-care (01) ==
PROVIDERS: PCP Family Medicine; Visit Provider Family Medicine
DX: E04.1 Nontoxic single thyroid nodule (principal); E78.00 Pure hypercholesterolemia, unspecified; R73.01 Impaired fasting glucose; I10 Essential (primary) hypertension; Z00.00 Encounter for general adult medical examination without abnormal findings
CPT/HCPCS: 36415; 80053; 80061; 81003; 83036; 84443; 85027

== ENCOUNTER 2023-07-30 07:12 | Outpatient (CLI) | payer MEDICARE, SELFPAY ==
[2023-07-30 08:01] LABS: Alanine Aminotransferase 34 U/L (6-35); Albumin Level 4.4 g/dL (3.5-5.1); Alkaline Phosphatase 125 U/L (38-126); Anion Gap 7 mmol/L (8-16); Aspartate Amino Transferase 42 U/L (14-36); Bilirubin,Total 0.5 mg/dL (0.2-1.3); Blood Urea Nitrogen 17 mg/dL (7-17); Calcium 8.7 mg/dL (8.4-10.2); Carbon Dioxide 29 mmol/L (22-30); Chloride 100 mmol/L (98-107); Estimated Glomerular Filt Rate > 60; Glucose 89 mg/dL (65-110); Potassium 3.4 mmol/L (3.4-5.0); Sodium 136 mmol/L (137-145)
== END 2023-07-30 07:13 | disposition home or self-care (01) ==
PROVIDERS: PCP Family Medicine; Visit Provider Physician Assistant
DX: R74.8 Abnormal levels of other serum enzymes (principal)
CPT/HCPCS: 36415; 80053

== ENCOUNTER 2023-09-19 14:47 | Outpatient (CLI) | payer MEDICARE, SELFPAY ==
--- NOTE | ~2023-09-19 | XR_ITS ---
EXAMINATION: XR knee LT 3V DATE: 09/19/2023 15:10 INDICATION: Left knee pain TECHNIQUE: Three views of the left knee were obtained. COMPARISON: 09/12/2021 FINDINGS: Alignment is normal. No fracture or osteochondral lesion. There is tricompartmental osteoar thritis of the knee, moderate to severe in the medial compartment with interval worsening, otherwise moderate. There is a small knee joint effusion. Soft tissues are unremarkable. IMPRESSION: 1. Tricompartmental osteoarthritis with interval worsening in the medial compartment. Reviewed, dictated and finalized at location F. IMPRESSION: 1. Tricompartmental osteoarthritis with interval worsening in the medial compar tment.
== END 2023-09-19 14:48 | disposition home or self-care (01) ==
PROVIDERS: PCP Family Medicine; Visit Provider Physician Assistant
DX: M17.12 Unilateral primary osteoarthritis, left knee (principal)
CPT/HCPCS: 73562

== ENCOUNTER 2023-11-20 11:15 | Outpatient (RCR) | payer MEDICARE, SELFPAY ==
--- NOTE | 2023-10-26 10:19 | OPREHPOC ---
Outpatient Therapy Plan of Care This is a Multidisciplinary Plan of Care that may contain components documented by all disciplines (PT, OT, and ST.) PT Problem 1 PT Problem #1 Knowledge Deficit PT Goal 1 Goal [place] with HEP Target Visit 4 PT Problem 2 PT Problem #2 Impaired Range of Motion PT Goal 1 Goal Achieve 10+ degrees of left ankle dorsiflexion to assist with terminal stance during gait Target Visit 8 PT Goal 2 Goal Improve L knee flexion ROM to 115 degrees plus for improved functional bend as structural integrity allows Target Visit 8 PT Problem 3 PT Problem #3 Impaired Strength PT Goal 1 Goal Improve tino hip flexion strength to 4+/5 to improve foot clearance and swing phase Target Visit 8 PT Goal 2 Goal Improve tino hip abduction strength to 4+/5 to improve lateral hip stability and knee stability during ADLs Target Visit 8
--- NOTE | 2023-10-26 10:20 | PTOPEVAL1 ---
Assessment and note entered by Acosta Terrell, PT Evaluation Information Assessment Status Evaluation Diagnosis Osteoarthritis of left knee, Left knee pain Onset 2021 Subjective Information Patient likes to dance and she has been unable to do it for quite a while. She would like to have TKA as soon as she can. She reports a lot of stiffness and difficulty with bending and walking after being sedentary for a while. 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 She has been taking Aleve for pain and inflammation. Denies any other pain reports in her body at this time. Reported Pain Level Pain Score 0: Self Report Assessment PT Clinical Summary Patient presents with structural knee ROM deficits indicated by firm end feel in both ranges. Weakness noted in tino hips and loss of full dorsiflexion in left ankle. Patient will benefit from skilled therapy for pre-operative strengthening and ROM training for smooth transition into post operative therapy. No concerns at this time with activity limitation. Plan of Care Interventions Electrical Stimulation,Gait Training,Hot Pack/Cold Pack,Manual Therapy,Neuro Re-education, Therapeutic Activities,Therapeutic Exercise PT Services Indicated Yes Treatment Frequency and 2x/week for 8 visits Duration These treatments will address the objective and functional deficits as defined above. The patient will be advanced safely and appropriately in order for the patient to progress towards his/her prior level of function. Additional exercises will be introduced and as well as a comprehensive home exercise program upon discharge, if needed, ?to ensure carryover of functional gains achieved in the clinic. This treatment plan has been reviewed and agreement upon by the patient.
--- NOTE | 2023-11-20 12:02 | OPREHPOC ---
Outpatient Therapy Plan of Care This is a Multidisciplinary Plan of Care that may contain components documented by all disciplines (PT, OT, and ST.) PT Problem 1 PT Problem #1 Knowledge Deficit PT Goal 1 Goal [place] with HEP Target Visit 4 Progress Met PT Problem 2 PT Problem #2 Impaired Range of Motion PT Goal 1 Goal Achieve 10+ degrees of left ankle dorsiflexion to assist with terminal stance during gait Target Visit 8 Progress Met PT Goal 2 Goal Improve L knee flexion ROM to 115 degrees plus for improved functional bend as structural integrity allows Target Visit 8 Progress Met PT Problem 3 PT Problem #3 Impaired Strength PT Goal 1 Goal Improve tino hip flexion strength to 4+/5 to improve foot clearance and swing phase Target Visit 8 Progress Met PT Goal 2 Goal Improve tino hip abduction strength to 4+/5 to improve lateral hip stability and knee stability during ADLs Target Visit 8 Progress Partially Met
--- NOTE | 2023-11-20 12:02 | PTOPDC ---
Assessment and note entered by Acosta Terrell, PT Evaluation Information Assessment Status Discharge Diagnosis Osteoarthritis of left knee, Left knee pain Onset 2021 Subjective Information Patient reports that she is still struggling with pain. Scheduled for cardiac clearance next week. She feels she is ready for surgery as soon as it would be available. Feels comfortable with HEP and plans to continue independently. Assessment PT Clinical Summary Patient has made both ROM and strength progress at this time. She continues to have palpable end range difficulty in both flexion and extension. Overall patient appears to be at a physical position to be prepared for knee arthroplasty. Patient is compliant and independent with HEP. Plan of Care PT Services Indicated D/C to HEP
== END 2023-11-20 12:56 | disposition home or self-care (01) ==
LOC: ANHGOSHPT 11:15
PROVIDERS: PCP Family Medicine; Visit Provider Orthopaedic Surgery
DX: M17.12 Unilateral primary osteoarthritis, left knee (principal)
CPT/HCPCS: 97110; 97161; 97530

== ENCOUNTER 2023-11-29 08:25 | Outpatient (CLI) | payer MEDICARE, SELFPAY ==
--- NOTE | ~2023-11-29 | NM_ITS ---
EXAMINATION: NM rashida stress w perfusion DATE: 11/29/2023 10:19 INDICATION: Abnormal electrocardiogram. Encounter for preprocedural cardiovascular evaluation. TECHNIQUE: Rest images were obtained following intravenous administration of 10.3 mCi Tc99m tetrofosm in (Myoview). The patient was infused intravenously with Lexiscan (regadenoson). Then, 33.0 mCi Tc99m tetrofosmin (Myoview) was administered intravenously, and stress images were obtained. Data was ray nstructed into short axis and horizontal and vertical long axis SPECT images. Gated SPECT images were also obtained. COMPARISON: Myocardial perfusion imaging 10/05/2014 FINDINGS: There is no definite reversible or fixed perfusion abnormality to suggest ischemia or infar ction. There is no segmental wall motion abnormality. Left ventricular ejection fraction measures > 70%. IMPRESSION: 1. No definite ischemia or infarct. 2. Normal left ventricular ejection fraction measuring >70%. Reviewed, dictated and finalized at location A.
--- NOTE | 2023-11-29 09:14 | EST_ITS ---
Patient Info Name: Dominga Pierre Age: 78 years : 1945 Gender: Female Ht: 64 in Wt: 140 lbs BSA: 1.70 m2 HR: 66 bpm BP: 169 / 86 mmHg Heart Rhythm: Sinus Rhythm Exam Date: 11/29/2023 9:24 AM Exam Location: [facility] Patient Status: Outpatient Admit Date: 11/29/2023 Staff Ordering Physician: Stevie Domingo DO Attending Provider: Stevie Domingo DO Exercise Technologist: Cristine Donohue CT Exercise Physician: Stevie Domingo DO Exam Type: CA stress rashida w NM Study Info Indications Z01.810 - Encounter for preprocedural cardiovascular examination A regadenoson stress test was performed. Summary 1. 1. Negative lexiscan stress test for ischemic ST changes by ECG criteria. 2. 2. Baseline hypertension. 3. 3. Nuclear scan to follow and will be reported separately. Please correlate with it. 4. 4. Patient informed of the above results. Protocol: Lexiscan Stress ECG Details Stage: REST Duration (min): 1 min : 57 sec HR (bpm): 68 SBP (mmHg): 169 DBP (mmHg): 86 Stage: REST Duration (min): 10 min : 35 sec HR (bpm): 60 SBP (mmHg): 169 DBP (mmHg): 86 Stage: STAGE 1 Duration (min): 0 min : 59 sec HR (bpm): 102 SBP (mmHg): 169 DBP (mmHg): 86 Stage: RECOVERY Duration (min): 1 min : 0 sec HR (bpm): 90 SBP (mmHg): 200 DBP (mmHg): 93 Stage: RECOVERY Duration (min): 2 min : 0 sec HR (bpm): 78 SBP (mmHg): 200 DBP (mmHg): 93 Stage: RECOVERY Duration (min): 3 min : 0 sec HR (bpm): 79 SBP (mmHg): 200 DBP (mmHg): 93 Stage: RECOVERY Duration (min): 3 min : 59 sec HR (bpm): 73 SBP (mmHg): 169 DBP (mmHg): 88 Rest HR: 60 bpm Peak HR: 102 bpm Rest Sys BP: 169 mmHg Peak Sys BP: 209 mmHg Max Pred HR: 142 bpm % Max Pred HR: 72 % Target HR: 121 bpm Max RPP: 21,318 bpm*mmHg Termination Reason: Completed protocol Cardiac Symptoms: Shortness of breath Total Time: 1 min : 0 sec Rest Nava BP: 86 mmHg Peak Nava BP: 97 mmHg Total Dose: 0.4 mg Resting ECG Sinus rhythm. Stress ECG No ST changes. Arrhythmias None. Report Signatures
== END 2023-11-29 08:26 | disposition home or self-care (01) ==
PROVIDERS: PCP Family Medicine; Visit Provider Internal Medicine Cardiovascular Disease
DX: Z01.810 Encounter for preprocedural cardiovascular examination (principal)
CPT/HCPCS: 78452; 93017; A9502; J2785

== ENCOUNTER 2023-12-07 07:10 | Outpatient (CLI) | payer MEDICARE, SELFPAY ==
--- NOTE | ~2023-12-07 | CT_ITS ---
EXAMINATION: CT LE LT wo con DATE: 12/07/2023 09:44 INDICATION: Melanoma primary osteoarthritis of the left knee TECHNIQUE: High resolution computed tomography (CT) of the left lower extremity from the hip through the ankle was performed without intravenous contrast. Additional sagittal and coronal reconstructions were performed. Automated exposure control and iterative reconstruction technique were employed. Th e dose-length product was 1570.04 mGy-cm. COMPARISON: Left knee radiographs dated 09/28/2023 FINDINGS: No acute fracture. Screw fixation at the first metatarsal, correlate with surgical history. There is severe joint space narrowing in the medial compartment of the left kidney resulting in mild genu varu m, similar degree as seen on the prior standing radiographs. There is subarticular sclerosis and cyst ic changes at the medial tibial plateau and juxtaposed anterior medial femoral condyle. There are jayme e small central subchondral osteophyte of the posterior weightbearing medial femoral condyle. Small m arginal osteophytes and mild medial side predominant joint space narrowing at both the patellofemoral and lateral compartments. Small left knee joint effusion. Mild to moderate osteoarthritis of the lef t hip with axial and posterior predominant nonuniform joint space narrowing and small marginal osteop hytes. Mild osteoarthritis at the joints of the left ankle and hindfoot and fourth and fifth tarsomet atarsal joints. Moderate to severe osteoarthritis with additional subarticular cystic changes at the first-third tarsal metatarsal and intermetatarsal joints. Soft tissues are unremarkable. A few phlebo liths in the left hemipelvis. No pathologically enlarged left pelvic or inguinal lymphadenopathy. IMPRESSION: 1. Tricompartmental osteoarthritis the left knee severe at the medial compartment. 2. Additional polyarticular osteoarthritis, mild to moderate the left hip and moderate to severe oste oarthritis at the first-third tarsal metatarsal joints. Reviewed, dictated and finalized at location A. IMPRESSION: 1. Tricompartmental osteoarthritis the left knee severe at the medial compartme nt. 2. Additional polyarticular osteoarthritis, mild to moderate the left hip and m oderate to severe osteoarthritis at the first-third tarsal metatarsal joints.
[2023-12-07 07:44] LABS: Albumin Level 4.4 g/dL (3.5-5.1); Estimated Glomerular Filt Rate > 60; Glucose 128 mg/dL (65-110)
[2023-12-07 08:01] LABS: Hematocrit 39.6 % (37.0-47.0); Hemoglobin 12.8 g/dL (12.0-15.0)
== END 2023-12-07 07:11 | disposition home or self-care (01) ==
PROVIDERS: PCP Family Medicine; Visit Provider Orthopaedic Surgery
DX: M17.12 Unilateral primary osteoarthritis, left knee (principal); E78.5 Hyperlipidemia, unspecified; M16.12 Unilateral primary osteoarthritis, left hip
CPT/HCPCS: 36415; 73700; 82040; 82565; 82947; 85014; 85018

== ENCOUNTER 2024-01-11 12:06 | Outpatient (CLI) | payer MEDICARE, SELFPAY ==
[2024-01-11 13:47] LABS: Eosinophils Absolute Auto 0.1 K/mm3 (0-0.3); Eosinophils Percent Auto 1.8 % (0-4.4); Hematocrit 39.5 % (37.0-47.0); Immature Granulocyte Absolute 0.01 K/mm3 (0.00-0.031); Immature Granulocyte Percent A 0.2 % (0-0.5); Lymphocytes Absolute Auto 1.62 K/mm3 (0.9-3.2); Lymphocytes Percent Auto 28.4 % (18.3-44.2); Mean Corpuscular HGB Conc 32.9 g/dl (32-36); Mean Corpuscular Hemoglobin 29.3 pg (26-34); Mean Platelet Volume 10.1 fl (7.4-10.4); Monocytes Absolute Auto 0.5 K/mm3 (0.1-0.6); Monocytes Percent Auto 8.4 % (2.6-8.5); Neutrophils Absolute Auto 3.5 K/mm3 (1.3-6.7); Neutrophils Percent Auto 61.2 % (45.5-73.1); Platelet Count Result 243 k/mm3 (150-375); Red Blood Count 4.44 M/mm3 (4.2-5.4); Red Cell Distribution Width 13.4 % (11.5-14.5); White Blood Count 5.7 K/mm3 (4.5-10.0)
[2024-01-11 13:56] LABS: Anion Gap 11 mmol/L (4-12); Blood Urea Nitrogen 16 mg/dL (7-17); Calcium 9.1 mg/dL (8.4-10.2); Carbon Dioxide 29 mmol/L (22-30); Chloride 101 mmol/L (98-107); Estimated Glomerular Filt Rate > 60; Glucose 94 mg/dL (65-110); Potassium 3.8 mmol/L (3.4-5.0); Sodium 141 mmol/L (137-145)
[2024-01-11 13:57] LABS: Hemoglobin A1C 5.9 % (<5.7)
[2024-01-11 13:58] LABS: Urine Cotinine NEGATIVE
[2024-01-11 14:58] LABS: MRSA (PCR) NOT DETECTED (NOT DETECTE)
== END 2024-01-11 12:07 | disposition home or self-care (01) ==
LOC: ANHSURGERY 12:10
PROVIDERS: Anesthesiology; PCP Family Medicine; Visit Provider Orthopaedic Surgery
DX: R73.01 Impaired fasting glucose (principal); M17.12 Unilateral primary osteoarthritis, left knee; Z01.818 Encounter for other preprocedural examination
CPT/HCPCS: 36415; 80048; 80307; 83036; 85025; 87641

== ENCOUNTER 2024-01-31 01:12 | Day surgery (SDC) | payer MEDICARE, SELFPAY ==
--- NOTE | 2024-01-11 12:12 | PC.NURSE ---
Addendum entered by Herson Gil RN 01/14/24 14:49: Add Aleve to your do not take for 7 days list. Original Note: Report to the Outpatient Waiting Room, entrance under the green pavilion located off [address], at time 08:00AM__ on date ___01/31/24____. Planned Procedure Time: ___10:00AM . Time changes happen often and if your time is changed the preop area will call you the afternoon before. - You and your visitor will be asked to self-screen and do not enter if you have any COVID symptoms. - A mask is optional within the hospital at this time. Patients may have clear liquids (water, carbonated beverages, clear teas, apple juice) until 3 hours prior to surgery with a maximum of 20 ounces. - No food from midnight until time of surgery Take the following medications with a SIP of water the morning of surgery: ___NONE DO NOT STOP ANY OF YOUR OTHER PRESCRIPTION MEDICATIONS PRIOR TO SURGERY ?EXCEPT THE FOLLOWING Medications to discontinue per physician STOP ALL VITAMINS, SUPPLEMENTS AND ASPIRIN [address] GIRON Date to take last dose__01/23/24 ___ Please no make-up, nail uzbek, hairspray, perfume, deodorant, or body powder the day of surgery. No jewelry (including any body piercings) or valuables the day of surgery, leave them at home. Please take a shower or bath the night before, or the morning of, surgery with an antibacterial soap. Wear comfortable, loose fitting clothing. Children are encouraged to wear pajamas. - Jewelry must be removed prior to entering the operating room. Rings and piercings that are not removed may be cut off. - The hospital will not accept responsibility for valuables. - Please leave all valuables, including medications, at home the day of surgery. If you are going home after surgery, a licensed pizza driver must drive you home. - NO public transportation without another adult if you receive anesthesia. - We recommend that an adult stay with you for 24 hours following discharge. - We also recommend that you do not drive, make important decision, drink alcoholic beverages, or take any drugs that were not prescribed by your health care provider for at least 24 hours after your discharge time. Follow any additional instructions given to you from your surgeon. If you or anyone in your household have experienced Covid symptoms in the past week, please notify your surgeon or the nurse liaison at the phone number below for possible testing. Telephone instructions given to ___PATIENT and asked if any additional questions and then verbalized understanding. Patient advised to call surgeon office or pre surgery nurse liaison [phone] if any additional questions.
[2024-01-11 12:25] VITALS: BMI 25.4
[2024-01-11 13:26] VITALS: BP 149/73; PULSE 52; RESP 16; TEMP 37.3; O2SAT 96
[2024-01-31] VITALS (8 sets, daily range): BP systolic 109–142; BP diastolic 58–76; PULSE 48–68; RESP 12–20; TEMP 36.4–36.6; O2SAT 98–100
--- NOTE | ~2024-01-31 | XR_ITS ---
EXAMINATION: [id number] DATE: 01/31/2024 16:03 INDICATION: Total left knee arthroplasty. Postop. TECHNIQUE: 2 views of left knee were obtained. COMPARISON: None. FINDINGS: There is a total left knee arthroplasty with patellar resurfacing in near-anatomic alignmen t. No fracture. There is gas in the joint and soft tissues, consistent with recent surgery. IMPRESSION: 1. Total left knee arthroplasty in near-anatomic alignment. Reviewed, dictated and finalized at location A.
--- NOTE | 2024-01-31 10:20 | WPDHPUPDATE1 ---
History and Physical Update Update Date/Time: 01/31/24 10:20 History and Physical has been reviewed, including an updated exam of the patient. There are NO changes in the patient's condition. Risks, benefits, and alternatives have been discussed and questions answered. Patient agrees to proceed with procedure.
[2024-01-31] MEDS: ACETAMINOPHEN 500 MG TABLET 1000 MG PO (11:00)
[2024-01-31] MEDS: TRANEXAMIC ACID 1,000MG/ISO100 1,000 MG/100 ML BAG 200 MG IVPB (11:00)
--- NOTE | 2024-01-31 11:38 | WPDANESEPPF ---
Anes - Initial Pre Proc Eval Procedure: Operation Date: 01/31/24 12:30 Proposed Procedures p Left Custom Total Knee Arthroplasty - Arnold Burks MD Date/Time: 01/31/24 11:38 Surgeon: Arnold Burks MD Pre Op Diagnosis: primary oa left knee Patient Data Age: 78 Gender: F Height: 1.58 m Weight: 61.2 kg Last Vital Signs Temp 37.3 C 01/11/24 13:26 Pulse 52 L 01/11/24 13:26 Resp 16 01/11/24 13:26 BP 149/73 H 01/11/24 13:26 Pulse Ox 96 01/11/24 13:26 O2 Del Method Room Air 01/11/24 13:26 Allergies Allergy/AdvReac Type Severity Reaction Status Date / Time No Known Allergies Allergy Verified 01/31/24 11:17 Home Medications Medication Instructions Recorded Confirmed Type aspirin 81 mg tablet,delayed 81 mg PO DAILY 06/10/19 01/31/24 History release (Adult Aspirin Regimen) omeprazole 40 mg capsule,delayed See Rx Instructions .Route 07/23/23 01/11/24 Rx release .COMPLEX #90 caps hydrochlorothiazide 25 mg tablet See Rx Instructions .Route 08/13/23 01/11/24 Rx .COMPLEX #90 tabs simvastatin 20 mg tablet See Rx Instructions .Route 08/13/23 01/11/24 Rx .COMPLEX #90 tabs Beets 1 gummy PO BID 01/11/24 01/31/24 History calcium carb-ergocalciferol (vit 1 tablet PO DAILY 01/11/24 01/31/24 History D2) 600 mg calcium-200 unit tablet metronidazole 0.75 % topical gel 1 applic topical DAILY PRN Skin 01/11/24 01/11/24 History Irritation naproxen sodium 220 mg capsule 440 mg PO BID PRN Pain 01/11/24 01/11/24 History (Aleve) Patient hx anesthesia problems: none Family hx anesthesia problems: none Results Review: All pre-operative results and documents have been reviewed as part of the pre-operative evaluation. [facility] Past Medical History Medical History (Updated 01/31/24 @ 11:51 by Dewey Collazo DO) GERD (gastroesophageal reflux disease) HLD (hyperlipidemia) HTN (hypertension), benign SVT (supraventricular tachycardia) Surgical History Surgical History History of bunionectomy History of cystocele Status post hysterectomy with oophorectomy Status post tonsillectomy Tibia/fibula fracture Family History Family History Sibling Carcinoma of colon Family history of diabetes mellitus in first degree relative Diabetes mellitus Hypertension Depression Father Malignant neoplasm of prostate Family history of diabetes mellitus in first degree relative Hypertension Heart disease Mother Family history of diabetes mellitus in first degree relative Diabetes mellitus Hypertension Heart disease Cerebrovascular accident Other Family history of osteoarthritis Social History Social History Social History: Smoking status: Never smoker Second hand tobacco smoke exposure: No Alcohol intake: current Alcohol use details: rarely Substance use: never Substance use type: does not use Lack of Transportation: No Lack of Food: Never True Current Housing: I Have Housing Concerned About Future Housing: No Difficulty Paying Gas/Electric Bills: No Difficulty Paying for Meds: No Currently Unemployed: No Education: Decline to Answer Difficulty w/ Childcare or Family Care: No Living arrangements: alone Occupation/Education: occupation Additional occupation/education comments: [employer] Gender identity (if verbalized by the patient): Female Sexual Orientation (if Verbalized by the Patient): Straight or Heterosexual Spiritual care concerns: No Anes - Eval Final PreProcedure Day of Procedure 01/31/24 11:38 Patient weight: normal Heart: regular rate and rhythm Lungs: clear to auscultation Airway: Mallampati scale class II Neurological: alert and oriented Last oral intake: >/= 8 hours ASA classification: III Emerge
--- NOTE | 2024-01-31 13:18 | WPDANESPNB ---
Anes - Peripheral Nerve Block Date/Time: 01/31/24 13:18 I have discussed with the patient/family/POA the placement of a peripheral nerve block for post-operative pain management, including associated risks, benefits, complications, and side effects. Alternative methods of post-operative analgesia were detailed. Questions were solicited and answers provided to the satisfaction of the patient/family/POA. Time-Out: A pre-procedural Time-Out was completed immediately before starting the procedure and confirmed: Patient Identification, Site, Procedure, Patient Position and the Availability of Requisite Equipment. Clinical Indications: Acute post-operative pain management requested by the operative surgeon. Nerve Block Insertion Note Anes-nerve block: adductor canal left Patient position: supine Skin prep: chlorhexidine Needle: 22 gauge, stimulating, insulated echogenic needle. Needle length: 80 mm Technique: ultrasound Injectate: bupivacaine 0.5% with epi 5 mcg/ml (30cc - no epi) Observations: tolerated well Complications: none Procedure start time:: 1301 Procedure end time:: 130
--- NOTE | 2024-01-31 15:28 | W.PM.PROC2 ---
Procedure Note - Detailed Date of Procedure 01/31/24 Pre-op Diagnosis Severe osteoarthritis left knee. Post-op Diagnosis Same Procedure Performed Total knee arthroplasty, left. Surgeon Arnold Burks MD Library Acquisitions Technician Nannette Gill PA-C Anesthesia General and Regional (Subsartorial block.) Findings Custom TKA. Preop flexion limited to 110?. Similar postop flexion with gravity. Slight medial release with a needle. Moderate PCL release. Good bone quality. Description of Procedure Preoperative antibiotics were given. The limb was prepped and draped in the usual sterile fashion with a well-padded tourniquet high on the thigh. The limb was exsanguinated and the tourniquet inflated to 300 mmHg, during exposure and cementation. A longitudinal incision was created just medial to the patella. A trivector approach to the knee was performed. Arthrotomy was taken down through the joint capsule. No significant releases were initially taken. The femur was exposed and the F1 jig was applied. The coring tool was used to remove the cartilage for the F2 jig to sit flush with the bone. The jig was pinned and the distal cut carefully taken. Caliper measurements confirmed appropriate bony resections according to the preoperative templated plan. The F4 cutting jig for the femur was applied, at the standard rotation. The AP and anterior chamfer cuts were taken. The F5 jig was applied and the posterior chamfer cuts were taken. The tibia was prepared using the T1 jig, after removing cartilage for the jig contact points. Proper alignment was checked with the alignment cedric. The tibia was cut using the T1u guide. Gap balancing was performed. Gap measurements were taken and the knee was trialed. Excellent alignment and soft tissue balancing was confirmed. The posterior cruciate ligament was recessed along the proximal tibia. The patella was cut for resurfacing. Three lug holes were drilled. Meniscal remnants were removed. The trial components were assembled. Excellent range of motion and proper soft tissue balancing were confirmed throughout the full range of motion. Patellar tracking was excellent. The knee was copiously irrigated periodically throughout the procedure. The real implants were cemented into position. Excess cement was carefully removed. The medial tissues felt tighter than during trialing. Five needle poke release of the MCL balanced the knee very nicely. Flexion remain limited and a slight increased PCL release was performed. Rollback was good, but there appeared to be some quadriceps contracture. The wound was closed in layers with interrupted #1 Vicryl suture, 2-0 strata fix suture, 0 strata fix suture, 2-0 strata fix suture. Steri-Strips placed on the skin with the knee flexed. Sterile bulky dressing applied. The patient was brought to the recovery room in stable condition. There were no complications. Physician pharmacy technician assistant, Nannette Gill PA-C, required for surgery; including patient positioning, draping, tissue retraction, maintaining instrument position, cement removal, wound closure, and dressing placement. Implants Conformis Custom total knee arthroplasty. Cemented. Cruciate retaining. 6B insert. 35 mm oval patella. Estimated Blood Loss 250 Drains No Complications No immediate complications Condition Stable Disposition PACU [facility] Billing Surgery - Charge Forward: Surgery Billing
[2024-01-31] MEDS: LACTATED RINGERS 1,000 ML 30 ML IV CONT ×2 (15:40)
[2024-01-31] MEDS: fentaNYL CITRATE INJ (*CRX) 100 MCG/2 ML VIAL 25 MCG IV PUSH ×4 (16:01→16:18)
[2024-01-31] MEDS: ACETAMINOPHEN 325 MG TABLET 650 MG PO (17:46)
[2024-01-31] MEDS: oxyCODONE/ACETAMINOPHEN (*CRX) 5-325 MG TABLET 1 TABLET PO (17:46)
[2024-01-31] MEDS: SENNA/DOCUSATE SODIUM TABLET 2 TAB PO (18:25)
[2024-01-31] MEDS: SIMVASTATIN 20 MG TABLET PO (18:25)
[2024-01-31] MEDS: predniSONE 5 MG TABLET PO (18:25)
[2024-01-31] MEDS: ceFAZolin 2 GM/D5W 50 ML 2 GM/50 ML BAG IVPB (21:10)
[2024-01-31] MEDS: FAMOTIDINE 20 MG TABLET PO (21:11)
[2024-01-31] MEDS: ASPIRIN 81 MG ENTERIC TABLET PO (21:11)
[2024-02-01] MEDS: ACETAMINOPHEN 325 MG TABLET 650 MG PO ×2 (00:52→05:13)
[2024-02-01 02:41] VITALS: BP 121/64; PULSE 50; RESP 16; TEMP 36.6; O2SAT 98
[2024-02-01] MEDS: ceFAZolin 2 GM/D5W 50 ML 2 GM/50 ML BAG IVPB (05:13)
[2024-02-01 06:38] VITALS: BP 119/52; PULSE 70; RESP 16; TEMP 36.2; O2SAT 99
[2024-02-01 07:33] LABS: Basophils Percent Auto 0.1 % (0.2-1.2); Eosinophils Percent Auto 0.1 % (0-4.4); Hematocrit 33.9 % (37.0-47.0); Hemoglobin 10.9 g/dL (12.0-15.0); Immature Granulocyte Absolute 0.05 K/mm3 (0.00-0.031); Immature Granulocyte Percent A 0.4 % (0-0.5); Lymphocytes Absolute Auto 1.01 K/mm3 (0.9-3.2); Mean Corpuscular HGB Conc 32.2 g/dl (32-36); Mean Corpuscular Hemoglobin 29.1 pg (26-34); Mean Corpuscular Volume 90.6 fl (80-100); Mean Platelet Volume 10.4 fl (7.4-10.4); Monocytes Absolute Auto 0.6 K/mm3 (0.1-0.6); Monocytes Percent Auto 5.5 % (2.6-8.5); Neutrophils Absolute Auto 9.6 K/mm3 (1.3-6.7); Neutrophils Percent Auto 84.9 % (45.5-73.1); Platelet Count Result 208 k/mm3 (150-375); Red Blood Count 3.74 M/mm3 (4.2-5.4); Red Cell Distribution Width 13.5 % (11.5-14.5); White Blood Count 11.3 K/mm3 (4.5-10.0)
[2024-02-01 07:37] LABS: Anion Gap 9 mmol/L (4-12); Blood Urea Nitrogen 17 mg/dL (7-17); Calcium 8.1 mg/dL (8.4-10.2); Carbon Dioxide 28 mmol/L (22-30); Chloride 99 mmol/L (98-107); Estimated CRCL calculation 40 ml/min; Estimated Glomerular Filt Rate > 60; Glucose 113 mg/dL (65-110); Sodium 136 mmol/L (137-145)
[2024-02-01 08:00] VITALS: PULSE 59; RESP 16; O2SAT 100
--- NOTE | 2024-02-01 08:23 | PM.DS ---
DS: Admitting Diagnosis Discharge Date 02/01/24 Admitting Diagnosis Knee arthritis. DS: Discharge Diagnosis Discharge Diagnosis (1) Status post total left knee replacement: Code(s): Z96.652 - Presence of left artificial knee joint Status: Acute Assessment and Plan: Postop day 1: Total Knee arthroplasty. Patient tolerated procedure well. No complications. Pain manageable with pain medication. No numbness or tingling. We had a lengthy discussion regarding postoperative wound care, limitations, expectations, and exercises. Patient shows good understanding. Patient has had initial physical therapy and is tolerating it well. DVT prophylaxis: 81 mg baby aspirin b.i.d. for 14 days. Short frequent walks. Pain medication: Percocet. Aleve. Prednisone. Patient has followup appointment with Dr. Burks in 3 weeks DS: Summary Hospital Course Reason for hospitalization: Total knee arthroplasty Hospital Course: Patient tolerated procedure well. Has had initial PT/OT. Status at Discharge Functional status at discharge: uses cane/walker Overall status at discharge: patient is progressing back to baseline Time Spent with Patient Time attestation: Total time spent providing and/or coordinating discharge services: Exam Narrative: 78-year-old normal weight female. Working on steps with therapy at the time of my visit. Walking with walker. Alert and oriented x3. No acute distress. Wearing compression socks bilaterally. Dressing intact without drainage. Mild swelling. No ecchymosis. No erythema. No hematoma. Range of motion limited due to pain. Per therapy 0-90. Pain with end extension and flexion. Calf nontender. Neurologic status intact. No varicosities. Distal pulses palpable. Const: General: No underweight DS: Data Data Completed and Pending Labs on day of discharge: Labs from last 24 hours 02/01/24 01/31/24 07:22 10:52 WBC 11.3 H RBC 3.74 L Hgb 10.9 L Hct 33.9 L MCV 90.6 MCH 29.1 MCHC 32.2 RDW 13.5 Plt Count 208 MPV 10.4 Immature Gran % (Auto) 0.4 Neut % (Auto) 84.9 H Lymph % (Auto) 9.0 L [place]ock[place] % (Auto) 5.5 Eos % (Auto) 0.1 Baso % (Auto) 0.1 L Lymph # (Auto) 1.01 [place] # (Auto) 0.6 Eos # (Auto) 0.0 Baso # (Auto) 0.0 Abs Immat Gran (auto) 0.05 H Absolute Neuts (auto) 9.6 H Absolute Nucleated RBC 0.000 Nucleated RBC % 0.0 Sodium 136 L Potassium 4.0 Chloride 99 Carbon Dioxide 28 Anion Gap 9 BUN 17 Creatinine 0.80 Estim Creat Clear Calc 40 Estimated GFR > 60 Glucose 113 H Calcium 8.1 L Blood Type O Positive Antibody Screen Negative Discharge Plan Discharge Patient Disposition: Home, Self-Care Discharge Instructions: See green instruction sheets Stand Alone Forms: General Discharge Instructions Follow-up/Referrals: Nannette Gill PA [Physician Stencil Typist] - Discharge Medications: New aspirin 81 mg tablet,delayed release (DR/EC) 81 mg PO BID 14 Days Qty: 28 0RF prednisone 5 mg tablet 5 mg PO DAILY 21 Days Qty: 21 0RF oxycodone-acetaminophen 5-325 mg tablet 1 - 2 tablet PO Q4-6H MDD 6 PRN (Reason: pain) Qty: 30 0RF Continued metronidazole 0.75 % Gel 1 applic TOPICAL DAILY PRN (Reason: Skin Irritation) naproxen sodium [Aleve] 220 mg Capsule 440 mg PO BID PRN (Reason: Pain) calcium carbonate-vitamin D2 600 mg calcium- 200 unit Tablet 1 tablet PO DAILY Beets 1 gummy PO BID aspirin [Adult Aspirin Regimen] 81 mg tablet,delayed release (DR/EC) 81 mg PO DAILY omeprazole 40 mg capsule,delayed release(DR/EC) See Rx Instructions .ROUTE .COMPLEX Qty: 90 2RF Dose Instruction: TAKE 1 CAPSULE DAILY BEFORE A MEAL Rx Instructions: TAKE 1 CAPSULE DAILY BEFORE A MEAL IN AM simvastatin 20 mg tablet See Rx Instructions .ROUTE .COMPLEX Qty: 90 2RF Dose Instruction: TAKE 1 TABLET EVERY EVENI
[2024-02-01] MEDS: SENNA/DOCUSATE SODIUM TABLET 2 TAB PO (08:41)
[2024-02-01] MEDS: hydroCHLOROthiazide 25 MG TABLET PO (08:41)
[2024-02-01] MEDS: FAMOTIDINE 20 MG TABLET PO (08:41)
[2024-02-01] MEDS: oxyCODONE/ACETAMINOPHEN (*CRX) 5-325 MG TABLET 1 TABLET PO (08:41)
[2024-02-01] MEDS: polyethylene glycoL 3350 17 GM POWD.PACK PO (08:43)
[2024-02-01] MEDS: ASPIRIN 81 MG ENTERIC TABLET PO (08:43)
[2024-02-01 09:20] VITALS: BP 112/59; PULSE 59; RESP 16; TEMP 36.4; O2SAT 100
--- NOTE | 2024-02-01 11:28 | WPDANESPN ---
Anes - Prog Note Post-Op Date/Time: 02/01/24 11:28 Cardiovascular status: normal Respiratory status: normal Airway patency: baseline Mental status: baseline Post-Op hydration status: normal Vital Signs: Last Vital Signs Temp 36.4 C L 02/01/24 09:20 Pulse 59 L 02/01/24 09:20 Resp 16 02/01/24 09:20 BP 112/59 L 02/01/24 09:20 Pulse Ox 100 02/01/24 09:20 O2 Del Method Room Air 02/01/24 08:37 O2 Flow Rate 8 01/31/24 15:55 Pain Score (VAS): 0 I/O: Intake & Output 01/31/24 02/01/24 02/01/24 23:59 07:59 15:59 Intake Total 490 50 240 Balance 490 50 240 Laboratory Tests 02/01/24 07:22 02/01/24 07:22 01/31/24 02/01/24 10:52 07:22 WBC 11.3 H RBC 3.74 L Hgb 10.9 L Hct 33.9 L MCV 90.6 MCH 29.1 MCHC 32.2 RDW 13.5 Plt Count 208 MPV 10.4 Immature Gran % (Auto) 0.4 Neut % (Auto) 84.9 H Lymph % (Auto) 9.0 L Dawson % (Auto) 5.5 Eos % (Auto) 0.1 Baso % (Auto) 0.1 L Lymph # (Auto) 1.01 Dawson # (Auto) 0.6 Eos # (Auto) 0.0 Baso # (Auto) 0.0 Abs Immat Gran (auto) 0.05 H Absolute Neuts (auto) 9.6 H Absolute Nucleated RBC 0.000 Nucleated RBC % 0.0 Sodium 136 L Potassium 4.0 Chloride 99 Carbon Dioxide 28 Anion Gap 9 BUN 17 Creatinine 0.80 Estim Creat Clear Calc 40 Estimated GFR > 60 Glucose 113 H Calcium 8.1 L Blood Type O Positive Antibody Screen Negative Post-procedural complaints: none Patient Feedback: Patient satisfied with anesthetic care.
== END 2024-02-01 13:20 | disposition home or self-care (01) ==
LOC: ANHSURGERY 13:08 → ANH3MEDSUR 16:57
PROVIDERS: Physician Assistant Surgical; PCP Family Medicine; Visit Provider Orthopaedic Surgery
PROC: (CPT 27447; principal; 2024-01-31 12:30)
DX: M17.12 Unilateral primary osteoarthritis, left knee (principal); I10 Essential (primary) hypertension; E78.5 Hyperlipidemia, unspecified; K21.9 Gastro-esophageal reflux disease without esophagitis; I47.10 Supraventricular tachycardia, unspecified; G89.18 Other acute postprocedural pain; Z79.82 Long term (current) use of aspirin; Z79.1 Long term (current) use of non-steroidal anti-inflammatories (NSAID); Z98.890 Other specified postprocedural states; Z80.0 Family history of malignant neoplasm of digestive organs; Z80.42 Family history of malignant neoplasm of prostate; Z82.49 Family history of ischemic heart disease and other diseases of the circulatory system
CPT/HCPCS: 64447; 27447; 36415; 73560; 80048; 80307; 83036; 85025; 86850; 86900; 86901; 87641; 97110; 97161; 97165; A9270; C1713; C1776; J0171; J0690; J1100; J1885; J2250; J2270; J2405; J2704; J2795; J3010; J7120; J7512

== ENCOUNTER 2024-03-12 06:39 | Outpatient (CLI) | payer MEDICARE, SELFPAY ==
[2024-03-12 08:22] LABS: Alanine Aminotransferase 23 U/L (6-35); Albumin Level 4.2 g/dL (3.5-5.1); Alkaline Phosphatase 122 U/L (38-126); Anion Gap 9 mmol/L (4-12); Aspartate Amino Transferase 33 U/L (14-36); Bilirubin,Total 0.6 mg/dL (0.2-1.3); Blood Urea Nitrogen 15 mg/dL (7-17); Calcium 8.6 mg/dL (8.4-10.2); Carbon Dioxide 30 mmol/L (22-30); Chloride 99 mmol/L (98-107); Estimated Glomerular Filt Rate > 60; Glucose 109 mg/dL (65-110); Potassium 3.5 mmol/L (3.4-5.0); Sodium 138 mmol/L (137-145)
[2024-03-12 08:37] LABS: Hemoglobin A1C 5.6 % (<5.7)
== END 2024-03-12 06:40 | disposition home or self-care (01) ==
PROVIDERS: PCP Family Medicine; Visit Provider Physician Assistant
DX: R73.01 Impaired fasting glucose (principal); I10 Essential (primary) hypertension; R74.8 Abnormal levels of other serum enzymes
CPT/HCPCS: 36415; 80053; 83036

== ENCOUNTER 2024-03-21 07:40 | Outpatient (CLI) | payer MEDICARE, SELFPAY ==
--- NOTE | ~2024-03-21 | XR_ITS ---
Left Knee Technique: AP, lateral, and sunrise views were obtained. Clinical History: Arthroplasty aftercare Findings: No fracture or dislocation is seen. Left knee arthroplasty in place, without evidence of barreto rdware complication. Soft tissues are unremarkable. No joint effusion is seen. Impression: No acute abnormality. Left knee arthroplasty in place. Reviewed, dictated and finalized at location . Impression: No acute abnormality. Left knee arthroplasty in place.
== END 2024-03-21 07:41 | disposition home or self-care (01) ==
PROVIDERS: PCP Family Medicine; Visit Provider Orthopaedic Surgery
DX: Z47.1 Aftercare following joint replacement surgery (principal)
CPT/HCPCS: 73562

== ENCOUNTER 2024-03-24 08:00 | Outpatient (RCR) | payer MEDICARE, SELFPAY ==
--- NOTE | 2024-02-14 08:53 | PTOPEVAL1 ---
Assessment and note entered by Ravinder Moser Evaluation Information Assessment Status Evaluation Diagnosis s/p left TKA ICD-10 Condition Codes (PT) Z47.1 Onset 01/31/24 Subjective Information Pt. reports she underwent a left TKA on 01/31/24. She reports that she is currently using a cane for walking. She states that she still has pain and is taking pain medication daily, but is trying to wean herself down. She reports that prior to surgery she noticed difficulty with straightening her knee. She states that she lives alone. She reports that she was very active prior to surgery and was completing all IADL's without complication . She reports she enjoyed bicycling riding and was riding up to 15-20 miles several times a week prior to surgery. She reports that she also enjoys dancing and would like to return to dancing . She states that her goal is to return to all her normal activities without limitation, including bicycling riding and dancing. Reported Pain Level Pain Score 2: Self Report Assessment PT Clinical Summary Pt. is a 78 year old female who enters the clinic 2 weeks post left TKA. She presents with impaired gait, impaired left knee ROM, impaired l.e. strength, functional decline, left knee pain and edema. Continued skilled PT is indicated in order to address these areas to allow the pt. to achieve her goal of Plan of Care Interventions Electrical Stimulation,Gait Training,Hot Pack/Cold Pack,Manual Therapy,Neuro Re-education,Patient/ Caregiver Educati,Therapeutic Activities, Therapeutic Exercise PT Services Indicated Yes Treatment Frequency and 2x/week x 12 visits Duration These treatments will address the objective and functional deficits as defined above. The patient will be advanced safely and appropriately in order for the patient to progress towards his/her prior level of function. Additional exercises will be introduced and as well as a comprehensive home exercise program upon discharge, if needed, ?to ensure carryover of functional gains achieved in the clinic. This treatment plan has been reviewed and agreement upon by the patient.
--- NOTE | 2024-02-14 09:03 | OPREHPOC ---
Outpatient Therapy Plan of Care This is a Multidisciplinary Plan of Care that may contain components documented by all disciplines (PT, OT, and ST.) PT Problem 1 PT Problem #1 Knowledge Deficit PT Goal 1 Goal Pt. will be independent with a HEP addressing l.e. strength and mobility advent. Target Visit 2 PT Problem 2 PT Problem #2 Impaired Range of Motion PT Goal 1 Goal Pt. will achieve 0-125 degrees left knee active ROM Target Visit 8 PT Problem 3 PT Problem #3 Impaired Gait PT Goal 1 Goal Pt. will ambulate over level surface with equal right and left stance time without an AD for duration of 6 minutes over a distance of 1000' or greater in order to return to normal IADL's. Navigate stairs with reciprocal pattern with equal stance time on right and left Target Visit 12 PT Problem 4 PT Problem #4 Edema PT Goal 1 Goal Decrease girth measurements at left knee joint line to 38cm in order to allow for improve ROM and comfort Target Visit 12
--- NOTE | 2024-03-24 08:49 | PTOPDC ---
Assessment and note entered by Kenroy Nielson, PT, DPT Evaluation Information Assessment Status Discharge Diagnosis s/p left TKA ICD-10 Condition Codes (PT) Z47.1 Onset 01/31/24 Subjective Information Pt states her knee is doing wonderful. She has been going to the gym 4-5x/wk, she states she purposefully climbing the stairs a lot while she is there. She has not taken any pain medication for at least 3 weeks. She states she is 95% back to normal, her only complaint in missing some bend in her L knee, limiting how deep she can squat. She has returned to cutting her grass and doing all her normal ADLs. Reported Pain Level Pain Score 0,0: Self Report Assessment PT Clinical Summary Pt has completed 8 visits of skilled therapy following her L TKA. Today she demonstrates active knee motion of 3-110 deg and passive 0-112. She has met all of her therapy goals and no longer requires skilled services. She will be d/c'ed at this time with instructions to continue her stretching program. Plan of Care PT Services Indicated No
== END 2024-03-24 10:22 | disposition home or self-care (01) ==
LOC: ANHGOSHPT 08:00
PROVIDERS: PCP Family Medicine; Visit Provider Orthopaedic Surgery
DX: Z47.1 Aftercare following joint replacement surgery (principal); Z96.652 Presence of left artificial knee joint
CPT/HCPCS: 97016; 97110; 97140; 97161; 97530

== ENCOUNTER 2024-09-22 06:42 | Outpatient (CLI) | payer MEDICARE, SELFPAY ==
--- OUTSIDE RECORDS SUMMARY | 2024-09-22 06:47 | XMS_ITS | Encounter Summary ---
Author Organization [facility] Healthcare Address [address] [place] [address] Care Team Providers Care Matting Press Tender Name Role Phone Chaz Lloyd MD Primary Care Provider Reason for Visit * Reason Onset Date Comments Scheduling Appointments 10/27/2020 Confirmi ng mammogram appt- no answer Encounter Details Date Type Department Care Team (Late st Contact Info) Description 10/27/2020 Telephone [facility] [address] [place] [phone] Janae Jordan RT Scheduling Appointments (Confirming mammogram appt- no answer) Social History Tobacco Use Types Packs/Day Years Used Date Smoking Tobacco: Never Assessed Alcohol Use Standard Drinks/Week Comments No 0 (1 standard drink = 0.6 oz pur e alcohol) Comments No Sex and Gender Information Value Date Recorded Sex Assigned at Not on file Legal Sex Female 12:50 AM RACKET STRINGER Gender Identity Not on file Sexual Orientation Not on file documented as of this encounter Plan of Treatment Not on file documented as of this encounter Visit Diagnoses Not on filedocumented in this encounter Care Teams Matting Press Tender Relationship Specialty Start Date End Date Chaz Lloyd MD [address] [facility] [address] [place] [address] PCP - General 02/27/17 documented as of this encounter
--- OUTSIDE RECORDS SUMMARY | 2024-09-22 06:47 | XMS_ITS | Clinical Summary ---
Author Organization [facility] [address] Address [address] [place] [address] Care Team Providers Care Interior Designer Name Role Phone Chaz Lloyd MD Primary Care Provider Allergies Active Allergy Reactions Criticality Noted Date Comments Cephalosporins Hives Medium 07/22/2010 Medications aspirin 81 mg enteric coated tablet Take 81 mg by mouth daily Active simvastatin (ZOCOR) 20 mg tablet Take 20 mg by mouth nightly Active metroNIDAZOLE (METROGEL) 0.75 % gelIndications: Acne Rosacea Apply topically 2 (two) times a day Active hydroCHLOROthia zide (HYDRODIURIL) 25 mg tablet Take 25 mg by mouth daily Active omeprazole (PriLOSEC) 40 mg capsule Take 40 mg by mouth daily Active Active Problems Problem Noted Date Diagnosed Date Benign hypertension 11/15/2013 Overview (10/04/2016): BENIGN HYPERTENSION Impaired fasting glucose 11/15/2013 Overview (10/04/2016): IMPAIRED FASTING GLUCOSE Hyperlipidemia 11/15/2013 Overview (10/05/2016): HYPERLIPIDEMIA NEC/NOS Immunizations Immunization Administration Dates Next Due Tdap 03/05/2009 Surgical History Surgery Date Site/Laterality Comments OTHER SURGICAL HISTORY S/P Abdominal Hysterectomy BREAST EXCISIONAL BIOPSY 07/02/1987 - 07/01/1988 Right outpatient, benign BREAST CYST ASPIRATION Bilateral outpatient, benign, multiple HYSTERECTOMY 07/02/2000 - 07/01/2001 OOPHORECTOMY 07/02/2000 - 07/01/2001 TONSILLECTOMY LEG SURGERY BLADDER SURGERY Medical History Medical History Date Comments Hyperlipidemia Hypertension Arthritis Family History Medical History Relation Name Comments Diabetes Brother 1 Diabetes mellit us; Heart disease Brother 1 Diabetes Brother 2 Diabetes mellit us; Stroke Brother 2 Heart disease Father Heart disease; Prostate cancer Father Cancer -pros darden; Diabetes Mother Diabetes mellit us; Heart attack Mother MD; Hypertension Mother Hypertension; Breast cancer Niece Diabetes Sister 1 Heart disease Sister 1 Diabetes Sister 2 Diabetes Sister 3 Relation Name Status Comments Brother 1 (Age 74) Brother 2 (Age 84) Father (Age 83) Mother (Age 94) Niece Sister 1 (Age 86) Sister 2 (Age 84) Sister 3 (Age 75) Social History Tobacco Use Types Packs/Day Years Used Date Smoking Tobacco: Never Smokeless Tobacco: Never Alcohol Use Standard Drinks/Week Comments No 0 (1 standard drink = 0.6 oz pur e alcohol) Comments No Sex and Gender Information Value Date Recorded Sex Assigned at Not on file Legal Sex Female 12:50 AM QUARTER INSPECTOR Gender Identity Not on file Sexual Orientation Not on file Obstetrics History Para Term AB IAB SAB Ectopic Multiple Livin g Live Births 3 2 2 Date Outcome GA Total Labor Labor/2nd/3rd Weight Sex Type Anes PTL Leonela A1 A5 Name Clin Term Term Last Filed Vital Signs Vital Sign Reading Time Taken Comments Blood Pressure 148/88 11/16/2020 11:11 AM CDT Pulse 60 11/16/2020 11:11 AM CDT Temperature 36.5 C (97.7 F) 08/27/2020 8:09 AM QUARTER INSPECTOR Respiratory Rate - - Oxygen Saturation 97% 11/16/2020 11:11 AM CDT Inhaled Oxygen Concentration - - Weight 61.2 kg (135 lb) 03/07/2024 7:42 AM CDT Height 162.6 cm (5' 4 ) 03/07/2024 7:42 AM CDT Body Mass Index 23.17 03/07/2024 7:42 AM CDT Plan of Treatment Health Maintenance Due Date Last Done Comments Depression Screening 1945 Fall Risk Assessment 1945 Hepatitis C Screening 1945 Hepatitis B Screening 1963 Pneumococcal vaccine 65+ (1 of 1 - PCV) 1995 Zoster Vaccine (1 of 2) 1995 Well Visit 65+ 2010 DTaP/Tdap/Td Vaccine (2 - Td or Tdap) 03/05/2019 03/05/2009 Osteoporosis Screening-Bone Density Scan 06/06/2020 06/06/2018 Influenza Vaccine (#1) 2024 03/03/2017, 2013 Breast Cancer Screening-Mammogram Discontinued 03/07/2024, 01/09/2023, 11/18/2021, Additional history exists Procedures Procedure Name Priority Date/Time Associated Diagnosis Comments SCREENING MAMMOGRAM BILATERAL W DAWIT Schedule Routine, Read Routine (OP Routine) 03/07/2024 7:49 AM CDT Screening mammogram, encounter for DEXA AXIAL SKELETON BONE DENSITY 1 OR MORE SITES Schedule Routine, Read Routine (OP Routine) 06/06/2018 9:11 AM QUARTER INSPECTOR Post-menopausal from Last 3 Months or Most Recently Relevant to Health Maintenance Results * Screening Mammogram Bilateral W Dawit (03/07/2024 7:49 AM CDT) Anatomical Region Laterality Modality Breast Bilateral Mammography 03/07/2024 9:29 AM CDT Impressions 03/07/2024 9:29 AM CDT There is no mammographic evidence of malignancy. A 1 year screening mammogram is recommended. BI-RADS: 2 - Benign. The patient has been or will be contacted. The patient will be entered into a reminder system with a target due date of 1 year for her next mammogram. Electronically signed by: Mundo Doe M.D. Narrative 03/07/2024 9:29 AM CDT EXAMINATION: SCREENING MAMMOGRAM BILATERAL W DAWIT ORDERING HEALTHCARE PROVIDER: SELF SCREENING MAMMOGRAM HISTORY: Routine screening mammography. COMPARISON: 01/09/2023, 11/18/2021, 10/29/2020, 06/20/2019 TECHNIQUE: CC and MLO views of the bilateral breasts were obtained with digital technique using breast tomosynthesis with C view. Computer aided detection was utilized. FINDINGS: DENSITY: The tissue of the bilateral breasts is heterogeneously dense, which may obscure small masses. BREASTS: There are stable benign calcifications in both breasts. There is no new suspicious finding in either breast on mammogram. us Self Screening Mammogram IMG MAMMO PROCEDURES Fi nal Result * Dexa Axial Skeleton Bone Density 1 or 2 Site (06/06/2018 9:11 AM QUARTER INSPECTOR) Anatomical Region Laterality Modality Body N/A Other 06/06/2018 9:14 AM QUARTER INSPECTOR Impressions 06/06/2018 9:15 AM QUARTER INSPECTOR 1. WHO CLASSIFICATION FOR LUMBAR SPINE IS OSTEOPENIA. 2. WHO CLASSIFICATION FOR HIP IS OSTEOPENIA. COMMENT: W.H.O. defines the T-score of between -1 and -2.5 as osteopenia, the level at which there may be an increased risk of developing osteoporosis and fractures in the future. Osteoporosis is defined as T-score lower than -2.5 (significantly increased risk of fracture due to osteoporosis). T-score is a comparison to peak bone mineral density of young adult reference population. Z-score is a comparison to bone mineral density of sex and age group population. Electronically signed by: Severino Marquez 06/06/2018 9:15 AM QUARTER INSPECTOR EXAM: DEXA Bone Density Axial HISTORY: Asymptomatic menopausal state. FINDINGS: The mean bone mineral content of the lumbar spine is 0.854 g/cm2. The T-score is -1.8 consistent with osteopenia. The mean bone mineral content of the left hip is 0.905 g/cm2. The neck T-score is -1.5. The total T-score is -0.3. This is consistent with osteopenia. Procedure Note Wily Owens MD - 06/06/2018 EXAM: DEXA Bone Density Axial HISTORY: Asymptomatic menopausal state. FINDINGS: The mean bone mineral content of the lumbar spine is 0.854 g/cm2. The T-score is -1.8 consistent with osteopenia. The mean bone mineral content of the left hip is 0.905 g/cm2. The neck T-score is -1.5. The total T-score is -0.3. This is consistent with osteopenia. IMPRESSION: 1. WHO CLASSIFICATION FOR LUMBAR SPINE IS OSTEOPENIA. 2. WHO CLASSIFICATION FOR HIP IS OSTEOPENIA. COMMENT: W.H.O. defines the T-score of between -1 and -2.5 as osteopenia, the level at which there may be an increased risk of developing osteoporosis and fractures in the future. Osteoporosis is defined as T-score lower than -2.5 (significantly increased risk of fracture due to osteoporosis). T-score is a comparison to peak bone mineral density of young adult reference population. Z-score is a comparison to bone mineral density of sex and age group population. Electronically signed by: Wily Owens M.D Chaz Lloyd MD IMG DXA PROCEDURES Kathy l Result from Last 3 Months or Most Recently Relevant to Health Maintenance Insurance [employer] MEDICARE PPO [facility] OTHER Address: [address] [address] [place] [address] MEDICARE FOR[facility]LY [facility] [employer] CHOICE MEDICARE PPO [employer] MEDICARE PPO Care Teams Interior Designer Relationship Specialty Start Date End Date Chaz Lloyd MD [address] [facility] [[email or web address] [address] [place] [address] PCP - General 02/27/17
--- OUTSIDE RECORDS SUMMARY | 2024-09-22 06:47 | XMS_ITS | Clinical Summary ---
Author Organization [facility] Address [address] [place] [address] Care Team Providers Care Orange Picker Machine Operator Name Role Phone Chaz Lloyd MD Primary Care Provider [phone] Source Comments [facility],non-owned Affiliates and Associated Physician Practices is amultiple site organization consisting of ambulatory clinics and hospital sitesin [place], [place], [place] and [place]. This disclosure is being madepursuant to the Care Everywhere program and may not contain all information available regarding this patient. Last updated 18.[facility] Allergies Active Allergy Reactions Criticality Noted Date Comments Cephalosporins Urticaria Medium 07/22/2010 Medications * Be aware that medications may not be up to date on this document. Alwaysverify current medications with the patient. Medication Sig Dispensed Refills Start Date End Date Status amoxicillin (Amoxil) 500 MG capsule TAKE FOUR CAPSULES BY MOUTH ONE HOUR BEFORE APPOINTMENT 04/09/2024 Active fluorouracil (Efudex) 5 % cream APPLY TO THE DESIGNATED AREA TWICE DAILY FOR 2 WEEKS, THEN RESTART TWICE DAILY FOR 2 FINAL WEEKS. 04/30/2024 Active hydroCHLOROthiazide (Hydrodiuril) 25 MG tablet Take 1 (one) tablet by mouth once daily Active meloxicam (Mobic) 15 MG tablet 01/29/2024 Active methylPREDNISolone (Medrol Dosepak) 4 MG tablet TAKE BY MOUTH DIRECTED ON INSIDE OF PACKAGE 04/30/2024 Active metroNIDAZOLE (Metrogel) 0.75 % gel Apply to affected area 2 times daily Active omeprazole (PriLOSEC) 40 MG capsule Take 1 (one) capsule by mouth once daily Active simvastatin (Zocor) 20 MG tablet Take 1 (one) tablet by mouth at bedtime Active predniSONE (Deltasone) 5 MG tablet Take 1 (one) tablet by mouth once daily for 21 days 01/31/2024 Active oxyCODONE-acetaminop hen (Percocet) 5-325 MG tablet TAKE 1 TO 2 TABLETS BY MOUTH EVERY 4 TO 6 HOURS NEEDED FOR PAIN . DO NOT EXCEED 6 PER 24 HOURS 03/05/2024 Active aspirin EC (Ecotrin) 81 MG tablet Take 1 (one) tablet by mouth once daily Active Active Problems Problem Noted Date Diagnosed Date Benign hypertension 11/15/2013 Overview (06/09/2024): BENIGN HYPERTENSION Hyperlipidemia 11/15/2013 Overview (06/09/2024): HYPERLIPIDEMIA NEC/NOS Impaired fasting glucose 11/15/2013 Overview (06/09/2024): IMPAIRED FASTING GLUCOSE Social History Tobacco Use Types Packs/Day Years Used Date Smoking Tobacco: Never Assessed Sex and Gender Information Value Date Recorded Sex Assigned at Not on file Gender Identity Not on file Sexual Orientation Not on file Plan of Treatment Health Maintenance Due Date Last Done Comments DTAP/TDAP/TD VACCINES (1 - Tdap) 1964 PNEUMOCOCCAL VACCINE 50+ (1 of 1 - PCV) 1995 ZOSTER VACCINE (1 of 2) 1995 Respiratory Syncytial Virus (RSV) Vaccine Pt: or over 60 yrs (1 - 1-dose 75+ series) 2020 COVID-19 VACCINE ( - 2023-2 5 season) 2024 INFLUENZA VACCINE (#1) 2024 DEPRESSION SCREENING 07/02/2024 BONE DENSITY TESTING Completed 06/06/2018 HEPATITIS B VACCINE Aged Out No longe r eligible based on patient's age to complete this topic HIB VACCINE Aged Out No longer eligi ble based on patient's age to complete this topic HPV VACCINE Aged Out No longer eligi ble based on patient's age to complete this topic MENINGOCOCCAL (Group B) VACC INE SHARED DECISION-MAKING Aged Out No longer eligibl e based on patient's age to complete this topic MENINGOCOCCAL GROUPS A/C/Y/W VACCINE Aged Out No longer eligible b ased on patient's age to complete this topic Care Teams Orange Picker Machine Operator Relationship Specialty Start Date End Date Chaz Lloyd MD [address] [place] [address] PCP - General Family Medicine 06/09/24
--- OUTSIDE RECORDS SUMMARY | 2024-09-22 06:47 | XMS_ITS | Referral Summary ---
Author Organization [facility] [address] Address [address] [place] [address] Care Team Providers Care Shipping Weigher Name Role Phone Chaz Lloyd MD Primary [...] Immunization Administration Dates Next Due Tdap 03/05/2009 Social History Tobacco Use Types Packs/Day Years Used Date Smoking Tobacco: Never Smokeless Tobacco: Never Alcohol Use Standard Drinks/Week Comments No 0 (1 standard drink = 0.6 oz pur e alcohol) Comments No Sex and Gender Information Value Date Recorded Sex Assigned at Not on file Legal Sex Female 12:50 AM NURSERY HELPER Gender Identity Not on file Sexual Orientation Not on file Last Filed Vital Signs Vital Sign Reading Time Taken Comments Blood Pressure 148/88 11/16/2020 11:11 AM CDT Pulse 60 11/16/2020 11:11 AM CDT Temperature 36.5 C (97.7 F) 08/27/2020 8:09 AM NURSERY HELPER Respiratory Rate - - Oxygen Saturation 97% 11/16/2020 11:11 AM CDT Inhaled Oxygen Concentration - - Weight 61.2 kg (135 lb) 03/07/2024 7:42 AM CDT Height 162.6 cm (5' 4 ) 03/07/2024 7:42 AM CDT Body Mass Index 23.17 03/07/2024 7:42 AM CDT Plan of Treatment Not on file Procedures Procedure Name Priority Date/Time Associated Diagnosis Comments SCREENING MAMMOGRAM BILATERAL W DAWIT Schedule Routine, Read Routine (OP Routine) 03/07/2024 7:49 AM CDT Screening mammogram, encounter for DEXA AXIAL SKELETON BONE DENSITY 1 OR MORE SITES Schedule Routine, Read Routine (OP Routine) 06/06/2018 9:11 AM NURSERY HELPER Post-menopausal from Last 3 Months or Most [...] 1 or 2 Site (06/06/2018 9:11 AM NURSERY HELPER) Anatomical Region Laterality Modality Body N/A Other 06/06/2018 9:14 AM NURSERY HELPER Impressions 06/06/2018 9:15 AM NURSERY HELPER 1. WHO CLASSIFICATION FOR LUMBAR SPINE IS OSTEOPENIA. 2. WHO CLASSIFICATION FOR HIP IS OSTEOPENIA. COMMENT: [email or web address]. defines the T-score of between -1 and [...] signed by: Severino Marquez 06/06/2018 9:15 AM NURSERY HELPER EXAM: DEXA Bone Density Axial HISTORY: Asymptomatic [...] Health Maintenance Insurance HU[employer]NA CHOICE MEDICARE PPO MEDICARE [employer] [place] [employer] [place] [employer] CHOICE MEDICARE PPO HU[employer]NA CHOICE MEDICARE PPO Care Teams Shipping Weigher Relationship Specialty Start Date End Date Chaz Lloyd MD [address] [facility] [address] [place] [phone] PCP - General 02/27/17
--- OUTSIDE RECORDS SUMMARY | 2024-09-22 06:47 | XMS_ITS | Encounter Summary ---
Author Organization [facility] Address [address] [address] Care Team Providers Care Torch Brazer Name Role Phone Chaz Lloyd MD Primary Care Provider [phone] Encounter Details Date Type Department Care Team (Late st Contact Info) Description 05/16/2024 Lab Requisition [facility] - DermPath Lab [address] [facility] [place] [id number] Wander Anne MD [address] [place] [address] Social History Tobacco Use Types Packs/Day Years Used Date Smoking Tobacco: Never Assessed Sex and Gender Information Value Date Recorded Sex Assigned at Not on file Gender Identity Not on file Sexual Orientation Not on file documented as of this encounter Plan of Treatment Not on file documented as of this encounter Procedures Procedure Name Priority Date/Time Associated Diagnosis Comments DERMATOPATHOLOGY Routine 05/14/2024 3:33 AM PUNCHING MACHINE OPERATOR documented in this encounter Results * DERMATOPATHOLOGY (05/14/2024 3:33 AM PUNCHING MACHINE OPERATOR) Case Report Dermatopathology Report Case: [id number] Authorizing Provider: Wander Anne MD Collected: 05/14/2024 03:33 AM Ordering Location: [facility] - Received: 05/16/2024 03:28 PM DermPath Lab Pathologist: Vanna Noguera MD Specimen: Skin, above mid left eyebrow 1:26 PM PUNCHING MACHINE OPERATOR DERMATOPATHOLOGY LABORATORY Final Diagnosis Specimen A. 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 The specimen consists of a shave biopsy measuring 6x6x1 mm. Jar 1:26 PM [facility] DERMATOPATHOLOGY LABORATORY Microscopic Description Specimen A. SKIN, above mid left eyebrow: There is focal parakeratosis. The lower half of the epidermis shows disorderly maturation of keratinocytes with nuclear pleomorphism. In addition, there are nests of cytologically bland melanocytes within the dermis that mature with depth. 1:26 PM [facility] DERMATOPATHOLOGY LABORATORY Disclaimer An external and internal positive and negative controls are appropriate for the histochemical, immunohistochemical and immunofluorescence stain(s) in this case (if any), except where stated explicitly. The performance characteristics of the stain(s) cited in this report were developed and its performance characteristic determined by the Dermatopathology Laboratory at [facility], directed by Dr. Ehsan Donaldson. These tests need not be, and therefore are not, approved by the [place] Food and Drug Administration. The tests are used for clinical purposes. Billing Codes Specimen Charges Stain Charges 76397 1 4 1:26 PM [facility] DERMATOPATHOLOGY LABORATORY Embedded Images 4 1:26 PM [facility] DERMATOPATHOLOGY LABORATORY Pathology/Cytolo gy TISSUE SPECIMEN FROM SKIN / Unknown 05/14/2024 3:33 AM PUNCHING MACHINE OPERATOR 05/16/2024 3:28 PM PUNCHING MACHINE OPERATOR Wander Anne MD LAB - PATHOLOGY/CYTO LOGY ORDERABLES DERMATOPATHOLOGY LABORATORY [facility] - Department of Dermatology [address] [place] [address] [place] [address] documented in this encounter Visit Diagnoses Not on filedocumented in this encounter Care Teams Torch Brazer Relationship Specialty Start Date End Date Chaz Lloyd MD [address] [place] [address] PCP - General Family Medicine 06/09/24 documented as of this encounter
[2024-09-22 07:47] LABS: Hemoglobin 12.4 g/dL (12.0-15.0); Mean Corpuscular HGB Conc 32.6 g/dl (32-36); Mean Corpuscular Hemoglobin 28.7 pg (26-34); Mean Platelet Volume 10.2 fl (7.4-10.4); Platelet Count Result 244 k/mm3 (150-375); Red Blood Count 4.32 M/mm3 (4.2-5.4); Red Cell Distribution Width 13.9 % (11.5-14.5); White Blood Count 3.5 K/mm3 (4.5-10.0)
[2024-09-22 08:01] LABS: Alanine Aminotransferase 26 U/L (6-35); Albumin Level 4.3 g/dL (3.5-5.1); Alkaline Phosphatase 111 U/L (38-126); Anion Gap 8 mmol/L (4-12); Aspartate Amino Transferase 30 U/L (14-36); Bilirubin,Total 0.5 mg/dL (0.2-1.3); Blood Urea Nitrogen 18 mg/dL (7-17); Carbon Dioxide 30 mmol/L (22-30); Chloride 102 mmol/L (98-107); Cholesterol 155 mg/dL (0-200); Estimated Glomerular Filt Rate > 60; Glucose 128 mg/dL (65-110); HDL Direct 85 mg/dL; Potassium 3.5 mmol/L (3.4-5.0); Sodium 140 mmol/L (137-145); Triglycerides 55 mg/dL (<150)
[2024-09-22 08:09] LABS: Add Urine Microscopic? NO; Appearance Urine Clear (Clear); Bilirubin Urine Negative (Negative); Blood Urine Negative (Negative); Color Urine Yellow (Yellow); Glucose Urine UA Negative (Negative); Ketones Urine Negative (Negative); Leukocyte Esterase Ur Negative LEU/UL (Negative); Nitrate Urine Negative (Negative); Protein Urine Negative (Negative); Specific Grav Ur 1.019 (1.001-1.035)
[2024-09-22 08:12] LABS: LDL Cholesterol Direct 46 mg/dL
[2024-09-22 08:18] LABS: Hemoglobin A1C 5.7 % (<5.7)
== END 2024-09-22 06:43 | disposition home or self-care (01) ==
PROVIDERS: PCP Family Medicine; Visit Provider Physician Assistant Medical
DX: E78.00 Pure hypercholesterolemia, unspecified (principal); I10 Essential (primary) hypertension; E04.1 Nontoxic single thyroid nodule; R73.01 Impaired fasting glucose; M85.80 Other specified disorders of bone density and structure, unspecified site
CPT/HCPCS: 36415; 80053; 80061; 81003; 83036; 84443; 85027

== ENCOUNTER 2024-10-20 08:45 | Outpatient (CLI) | payer MEDICARE, SELFPAY ==
[2024-10-20 09:02] LABS: Eosinophils Absolute Auto 0.1 K/mm3 (0-0.3); Eosinophils Percent Auto 2.9 % (0-4.4); Hematocrit 35.9 % (37.0-47.0); Hemoglobin 11.4 g/dL (12.0-15.0); Immature Granulocyte Absolute 0.01 K/mm3 (0.00-0.031); Immature Granulocyte Percent A 0.3 % (0-0.5); Mean Corpuscular HGB Conc 31.8 g/dl (32-36); Mean Corpuscular Hemoglobin 28.5 pg (26-34); Mean Corpuscular Volume 89.8 fl (80-100); Mean Platelet Volume 9.7 fl (7.4-10.4); Monocytes Absolute Auto 0.4 K/mm3 (0.1-0.6); Monocytes Percent Auto 11.8 % (2.6-8.5); Neutrophils Absolute Auto 2.6 K/mm3 (1.3-6.7); Platelet Count Result 224 k/mm3 (150-375); White Blood Count 3.7 K/mm3 (4.5-10.0)
--- OUTSIDE RECORDS SUMMARY | 2024-10-20 09:27 | XMS_ITS | Referral Summary ---
Author Organization [facility] [address] Address [address] [place] [address] Care Team Providers Care Phonograph Mechanic Name Role Phone Chaz Lloyd MD Primary [...] on file Legal Sex Female 12:50 AM DRYING MACHINE RECEIVER Gender Identity Not on file Sexual Orientation Not on file Last Filed Vital Signs Vital Sign Reading Time Taken Comments Blood Pressure 148/88 11/16/2020 11:11 AM CDT Pulse 60 11/16/2020 11:11 AM CDT Temperature 36.5 C (97.7 F) 08/27/2020 8:09 AM DRYING MACHINE RECEIVER Respiratory Rate - - Oxygen Saturation 97% [...] Read Routine (OP Routine) 06/06/2018 9:11 AM DRYING MACHINE RECEIVER Post-menopausal from Last 3 Months or Most [...] 1 or 2 Site (06/06/2018 9:11 AM DRYING MACHINE RECEIVER) Anatomical Region Laterality Modality Body N/A Other 06/06/2018 9:14 AM DRYING MACHINE RECEIVER Impressions 06/06/2018 9:15 AM DRYING MACHINE RECEIVER 1. WHO CLASSIFICATION FOR LUMBAR SPINE IS [...] signed by: Severino Marquez 06/06/2018 9:15 AM DRYING MACHINE RECEIVER EXAM: DEXA Bone Density Axial HISTORY: Asymptomatic [...] Maintenance Insurance [employer] CHOICE MEDICARE PPO MEDICARE [employer] [place] [employer] [place] [employer] CHOICE MEDIC[place] PPO HUMANA CHOICE MEDICARE PPO Care Teams Phonograph Mechanic Relationship Specialty Start Date End Date Chaz Lloyd MD [address] [facility] [address] [place] [phone] PCP - General 02/27/17
--- OUTSIDE RECORDS SUMMARY | 2024-10-20 09:27 | XMS_ITS | Clinical Summary ---
Author Organization [facility] [address] Address [address] [place] [address] Care Team Providers Care Graphics Programmer Name Role Phone Chaz Lloyd MD Primary [...] Mother Diabetes mellit us; Heart attack Mother ND; Hypertension Mother Hypertension; Breast cancer Niece Diabetes [...] on file Legal Sex Female 12:50 AM FLYING TEACHER Gender Identity Not on file Sexual Orientation [...] 36.5 C (97.7 F) 08/27/2020 8:09 AM FLYING TEACHER Respiratory Rate - - Oxygen Saturation 97% [...] Associated Diagnosis Comments SCREENING MAMMOGRAM BILATERAL W DAIWT Schedule Routine, Read Routine (OP Routine) 03/07/2024 7:49 AM CDT Screening mammogram, encounter for DEXA AXIAL SKELETON BONE DENSITY 1 OR MORE SITES Schedule Routine, Read Routine (OP Routine) 06/06/2018 9:11 AM FLYING TEACHER Post-menopausal from Last 3 Months or Most [...] 1 or 2 Site (06/06/2018 9:11 AM FLYING TEACHER) Anatomical Region Laterality Modality Body N/A Other 06/06/2018 9:14 AM FLYING TEACHER Impressions 06/06/2018 9:15 AM FLYING TEACHER 1. WHO CLASSIFICATION FOR LUMBAR SPINE IS [...] signed by: Severino Marquez 06/06/2018 9:15 AM FLYING TEACHER EXAM: DEXA Bone Density Axial HISTORY: Asymptomatic [...] [facility] OTHER Address: [address] [address] [place] [address] MEDICARE [facility] HUMANA CHOICE MEDICARE PPO HU[employer] CHOICE MEDICARE PPO Care Teams Graphics Programmer Relationship Specialty Start Date End Date Chaz Lloyd MD [address] [facility] [address] [place] [address] PCP - General 02/27/17
--- OUTSIDE RECORDS SUMMARY | 2024-10-20 09:27 | XMS_ITS | Encounter Summary ---
Author Organization [facility] Address [address] [place] [address] Care Team Providers Care Wafer Mounter Name Role Phone Chaz Lloyd MD Primary Care Provider [phone] Encounter Details Date Type Department Care Team (Late st Contact Info) Description 05/16/2024 Lab Requisition [facility] - DermPath Lab [address] [place] [phone] Wander Anne MD [address] [place] [address] Social History Tobacco Use Types Packs/Day Years Used Date Smoking Tobacco: Never Assessed Comments Unknown Sex and Gender Information Value Date Recorded Sex Assigned at Not on file Legal Sex Female 2:19 PM SENIOR TECHNICAL WRITER Gender Identity Not on file Sexual Orientation Not on file documented as of this encounter Plan of Treatment Not on file documented as of this encounter Procedures Procedure Name Priority Date/Time Associated Diagnosis Comments DERMATOPATHOLOGY Routine 05/14/2024 3:33 AM SENIOR TECHNICAL WRITER documented in this encounter Results * DERMATOPATHOLOGY (05/14/2024 3:33 AM SENIOR TECHNICAL WRITER) Case Report Dermatopathology Report Case: [id number] Authorizing Provider: Wander Anne MD Collected: 05/14/2024 03:33 AM Ordering Location: [facility] - Received: 05/16/2024 03:28 PM DermPath Lab Pathologist: Vanna Nougera MD Specimen: Skin, above mid left eyebrow 1:26 PM [facility] DERMATOPATHOLOGY LABORATORY Final Diagnosis Specimen A. 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 The specimen consists of a shave biopsy measuring 6x6x1 mm. Jar 1:26 PM SENIOR TECHNICAL WRITER DERMATOPATHOLOGY LABORATORY Microscopic Description Specimen A. SKIN, above mid left eyebrow: There is focal parakeratosis. The lower half of the epidermis shows disorderly maturation of keratinocytes with nuclear pleomorphism. In addition, there are nests of cytologically bland melanocytes within the dermis that mature with depth. 1:26 PM [facility] DERMATOPATHOLOGY LABORATORY Disclaimer An external and internal positive and negative controls are appropriate for the histochemical, immunohistochemical and immunofluorescence stain(s) in this case (if any), except where stated explicitly. The performance characteristics of the stain(s) cited in this report were developed and its performance characteristic determined by the Dermatopathology Laboratory at [facility], directed by Dr. Ehsan Donaldson. These tests need not be, and therefore are not, approved by the [place] Food and Drug Administration. The tests are used for clinical purposes. Billing Codes Specimen Charges Stain Charges 38199 1 4 1:26 PM SENIOR TECHNICAL WRITER DERMATOPATHOLOGY LABORATORY Embedded Images 4 1:26 PM [facility] DERMATOPATHOLOGY LABORATORY Pathology/Cytolo gy TISSUE SPECIMEN FROM SKIN / Unknown 05/14/2024 3:33 AM SENIOR TECHNICAL WRITER 05/16/2024 3:28 PM SENIOR TECHNICAL WRITER us Wander Anne MD LAB - PATHOLOGY/CYTOLOGY ORD ERABLES Final Result DERMATOPATHOLOGY LABORATORY [facility] - Department of Dermatology [facility] [address] [facility] [phone] documented in this encounter Visit Diagnoses Not on filedocumented in this encounter Care Teams Wafer Mounter Relationship Specialty Start Date End Date Chaz Lloyd MD [address] [place] [address] PCP - General Family Medicine 06/09/24 documented as of this encounter
--- OUTSIDE RECORDS SUMMARY | 2024-10-20 09:27 | XMS_ITS | Encounter Summary ---
Author Organization [facility] Address [address] [place] [address] Care Team Providers Care Coil Repair Technician Name Role Phone Chaz Lloyd MD Primary Care Provider Reason for Visit * Reason Onset Date Comments Scheduling Appointments 10/27/2020 Confirmi ng mammogram appt- no answer Encounter Details Date Type Department Care Team (Late st Contact Info) Description 10/27/2020 Telephone [facility] [address] [place] [id number] [address] Scheduling Appointments (Confirming mammogram appt- no answer) Social History Tobacco Use Types Packs/Day Years Used Date Smoking Tobacco: Never Assessed Alcohol Use Standard Drinks/Week Comments No 0 (1 standard drink = 0.6 oz pur e alcohol) Comments No Sex and Gender Information Value Date Recorded Sex Assigned at Not on file Legal Sex Female 12:50 AM SHOTGUN SHELL LOADING MACHINE OPERATOR Gender Identity Not on file Sexual Orientation Not on file documented as of this encounter Plan of Treatment Not on file documented as of this encounter Visit Diagnoses Not on filedocumented in this encounter Care Teams Coil Repair Technician Relationship Specialty Start Date End Date Chaz Lloyd MD [address] [facility] [address] [place] [address] PCP - General 02/27/17 documented as of this encounter
--- OUTSIDE RECORDS SUMMARY | 2024-10-20 09:27 | XMS_ITS | Clinical Summary ---
Author Organization [facility] Address [address] [place] [address] Care Team Providers Care Marine Underwriter Name Role Phone Chaz Lloyd MD Primary Care Provider [phone] Source Comments [facility],non-owned Affiliates and Associated Physician Practices is amultiple site organization consisting of ambulatory clinics and hospital sitesin [place], [place], [place] and [place]. This disclosure is being madepursuant to the Care Everywhere program and may not contain all information available regarding this patient. Last updated 18.[facility] Allergies Active Allergy Reactions Criticality Noted Date Comments Cephalosporins Urticaria Medium 07/22/2010 Medications * Be aware that medications may not be up to date on this document. Alwaysverify current medications with the patient. amoxicillin (Amoxil) 500 MG capsule TAKE FOUR CAPSULES BY MOUTH ONE HOUR BEFORE APPOINTMENT 4 Active fluorouracil (Efudex) 5 % cream APPLY TO THE DESIGNATED AREA TWICE DAILY FOR 2 WEEKS, THEN RESTART TWICE DAILY FOR 2 FINAL WEEKS. 4 Active hydroCHLOROthia zide (Hydrodiuril) 25 MG tablet Take 1 (one) tablet by mouth once daily Active meloxicam (Mobic) 15 MG tablet 4 Active methylPREDNISol one (Medrol Dosepak) 4 MG tablet TAKE BY MOUTH DIRECTED ON INSIDE OF PACKAGE 4 Active metroNIDAZOLE (Metrogel) 0.75 % gel Apply to affected area 2 times daily Active omeprazole (PriLOSEC) 40 MG capsule Take 1 (one) capsule by mouth once daily Active simvastatin (Zocor) 20 MG tablet Take 1 (one) tablet by mouth at bedtime Active predniSONE (Deltasone) 5 MG tablet Take 1 (one) tablet by mouth once daily for 21 days 4 Active oxyCODONE-aceta minophen (Percocet) 5-325 MG tablet TAKE 1 TO 2 TABLETS BY MOUTH EVERY 4 TO 6 HOURS NEEDED FOR PAIN . DO NOT EXCEED 6 PER 24 HOURS 4 Active aspirin EC (Ecotrin) 81 MG tablet [...] on file Legal Sex Female 2:19 PM ARBOR PRESS OPERATOR Gender Identity Not on file Sexual [...] VACCINE ( - 2023-2 5 season) 2024 DEPRESSION SCREENING 07/02/2024 INFLUENZA VACCINE (Season Ended) 2025 BONE DENSITY TESTING Completed 06/06/2018 HEPATITIS B [...] on patient's age to complete this topic Insurance HUMANA Care Teams Marine Underwriter Relationship Specialty Start Date End Date Chaz Lloyd MD [address] [place] [address] PCP - General Family Medicine 06/09/24
== END 2024-10-20 08:46 | disposition home or self-care (01) ==
PROVIDERS: PCP Family Medicine; Visit Provider Family Medicine
DX: D72.819 Decreased white blood cell count, unspecified (principal)
CPT/HCPCS: 36415; 85025

== ENCOUNTER 2025-03-23 11:06 | Outpatient (CLI) | payer MEDICARE, SELFPAY ==
--- OUTSIDE RECORDS SUMMARY | 2001-05-06 03:30 | XMS_ITS | Continuity of Care Document ---
Author Organization [facility] Address [address] [place] [address] Phone Care Team Providers Care Bicycle Rental Clerk Name Role Phone Raj Kwon MD Unavailable Unavailable Advance Directives Directive Yes / No Effective Date File Name No Information Encounters Encounter Description Practice Location Reason(s) For Visit Diagnoses Date Provider Providers Copied on Encounter [facility], [address], [place], [place], [id number], [place] tel:[phone] [facility] No Information Doyle Anthony. [address] [facility], [address], [address], [place]. tel:[phone] Family History Family Member Type Diagnosis Age At Onset No Information Payers Payer name Insurance type Covered green party ID Authoriza tion(s) No Information Social History Type Description Quantity Date Captured Comments Sex Female Smoking Status No Information Chief Complaint And Reason For Visit No Information Reason For Referral Reason For Referral No Information History Of Present Illness Encounter Date Complaint History Of Prese nt Illness No Information Functional Status Date Functional Assessmen t No Information Instructions Date Instruction Additional Infor mation No Information Assessments Type Assessment Date No Information Patient Care Teams Name Effective Dates (start - stop) Status Members No Information
--- OUTSIDE RECORDS SUMMARY | 2011-03-06 19:00 | XMS_ITS | Continuity of Care Document ---
Author Organization [facility] Address [address] [place] [address] Phone Care Team Providers Care Observation Assistant Name Role Phone Demarcus De La Rosa MD Unavailable Unavailable Allergies, Adverse Reactions, Alerts Substance Reaction Status Criticality Penicillins Other Active No Information Medications Medication Instructions Dosage Effective Dates (start - stop) Status Comments VITAMIN D 400 UNIT TABLET 1 DAILY - Active CALCIUM 500 W/VITAMIN D TAB 1 BID - Active HYDROCHLOROTHIAZIDE 25MG TABS 1 QAM - Active ADULT LOW STRENGTH 81MG TABS 1 QD-daily - Active AMOXICILLIN 500MG CAPS 1 TID - No Longer Active CALCIUM 500 W/VITAMIN D 500MG- 1 BID - No Longer Active VITAMIN D 400 UNIT TABS 1 DAILY - No Longer Active Advance Directives Directive Yes / No Effective Date File Name No Information Encounters Encounter Description Practice Location Reason(s) For Visit Diagnoses Date Provider Providers [facility]ied [facility], [address], [place], [place], [address] , tel: [phone] [facility] No Information 201 1 Rj Tracy. [address] , [address], [place], [place], [address]. tel:[phone] [facility], [address], [place], [place], [address] , tel: [phone] [facility] MENOPAUSAL DISORDER NOS 200 8 Rj Tracy. [address] , [address], [place], [place], [address]. tel:[phone] [employer], [address], [place], [place], [address] , [place] tel: [phone] [facility] BENIGN HYPERTENSIONFAM HX-DIABETES MELLITUS 8 Conversion Doctor. [facility] [place], [place], [facility], . [employer], [address], [place], [place], [address] , tel: [phone] [facility] No Information 8 De La Rosa Demarcus. [address] [facility] [place] [address], [place], [place], [address]. tel: [phone] [employer], [address], [place], [place], [address] , tel: [phone] [facility] DIFFUS CYSTIC MASTOPATHYDISLOC WRIST NOS-CLOSEDBENIGN NEOPLASM LG BOWEL 7 De La Rosa Demarcus. [address] [facility] [place] [address], [address], [place], [place], [address]. tel: [phone] [employer], [address], [place], [place], [address] , [place] tel: [phone] [facility] ACUTE SINUSITIS NOS 7 Conversion Doctor. [facility] [place], [place], [facility], . [employer], [address], [place], [place], [address] , tel: [phone] [facility] HYPERLIPIDEMIA NEC/NOS 6 Conversion Doctor. [facility] [place], [address], [place]. [employer], [address], [place], [place], [address] , [place] tel: [phone] [facility] BENIGN NEOPLASM NECBUNIONELEV BL PRES W/O HYPERTNPRSNL HST COLONIC POLYPSVACCINATION FOR TD-DT 6 De La Rosa Demarcus. [address], [place], [place], [address]. tel: [phone] [employer], [address], [place], [place], [address] , [place] tel:[phone] [facility] FX DIST PHALANX, HAND-CL 6-200 3 Conversion Doctor. [address] [place] [address], [facility], . [facility], [address], [place], [place], [address] , tel: [phone] [facility] PAIN IN LIMB 7-200 3 Conversion Doctor. [address] [place] [address], [facility], . [facility], [address], [place], [place], [address] , tel: [phone] [facility] BURSITIS NEC 6-200 1 Conversion Doctor. [address] [place] [address], [facility], . [facility], [address], [place], [place], [address] , tel: [phone] [facility] ACUTE URI NOSFAMILY HX-GI MALIGNANCY 6-200 0 Conversion Doctor. [address] [place] [address], [facility], . [facility], [address], [place], [place], [address] , tel: [phone] [facility] SCREEN MAL NEOP-RECTUM 1-200 0 Conversion Doctor. [address] [place] [address], [facility], . [facility], [address], [place], [place], [address] , tel: [phone] [facility] PALPITATIONSUTERI NE PROLAPSE 8-200 0 Conversion Doctor. [address] [place] [address], [facility], . Family History Family Member Type Diagnosis Age At Onset Family h/o Problem (finding) DIABETES MELLITUS Immunizations Vaccine Date Status Comments 56213 - TD administered Source: Source Unspecified Payers Payer name Insurance type Covered green [...]
--- OUTSIDE RECORDS SUMMARY | 2025-03-23 10:30 | XMS_ITS | Encounter Summary ---
Author Organization [facility] ([facility] DIEGO Robledo [facility] Address [address] [place] [address] Care Team Providers Care Caustic Pump Operator Name Role Phone Unavailable Primary Care Provider Unavailabl e Reason for Referral * Radiology Services (Routine) - Authorized Specialty Diagnoses / Procedures Referred By Contac t Referred To Contact Diagnoses Leukopenia, unspecified type Procedures US ABDOMEN COMPLETE Jonny Bates MD [email or web address] [place] [phone] Phone: tel: fax: [address] [address] Referral ID Status Reason Start Date Expiration Date V isits Requested Visits Authorized [id number] Authorized STL CTS 03/23/2025 04/23/2026 1 1 Reason for Visit * Reason Comments Establish Care Encounter Details Date Type Department Care Team (Late st Contact Info) Description 03/23/2025 10:30 AM CDT Office Visit [facility] Oncology and Hematology - [place] [address] [place] [address] Jonny Bates MD [email or web address] [place] [address] Chronic anemia (Primary Dx); Leukopenia, unspecified type Social History Tobacco Use Types Packs/Day Years Used Date Smoking Tobacco: Never Smokeless Tobacco: Never Tobacco Cessation:Counseling Given: Not Answered Alcohol Use Standard Drinks/Week Comments Yes 0 (1 standard drink = 0.6 oz pur e alcohol) Occasionally Comments Unknown Sex and Gender Information Value Date Recorded Sex Assigned at Not on file Legal Sex Female 9:34 AM CDT Gender Identity Not on file Sexual Orientation Not on file documented as of this encounter Last Filed Vital Signs Vital Sign Reading Time Taken Comments Blood Pressure 176/80 03/23/2025 10:22 AM CDT Pulse 65 03/23/2025 10:19 AM CDT Temperature 36.8 C (98.2 F) 03/23/2025 10:19 AM CDT Respiratory Rate 16 03/23/2025 10:19 AM CDT Oxygen Saturation 98% 03/23/2025 10:19 AM CDT Inhaled Oxygen Concentration - - Weight 63 kg (139 lb) 03/23/2025 10:19 AM CDT Height 162.6 cm (5' 4) 03/23/2025 10:19 AM CDT Body Mass Index 23.86 03/23/2025 10:19 AM CDT documented in this encounter Progress Notes * Jonny Bates MD - 03/23/2025 11:19 AM CDT Hematology-oncology consult Note Requesting Physician Chaz Lloyd MD Primary Care Physician No primary care provider on file. Problem list There is no problem list on file for this patient. Previous TREATMENT ? Measurable Disease ? Reason for Visit Dominga Pierre is a 79 y.o. female who was referred for consultation for anemia and leukopenia. History of present illness This is a pleasant 79-year-old female who has been remarkably healthy for age except history of hypertension, hyperlipidemia and status post left knee replacement referred to me for leukopenia that was found in last couple of labs done by the primary care physician. Recent labs showed anemia as well. She denies any bleeding including melena and hematochezia. She denies being a vegetarian. She denies having any previous stomach surgeries. She has some trouble swallowing in the past andhad esophageal dilatation done. She denies any B symptoms including night sweats fevers and chills.Her weight and appetite stable. She was told to have elevated liver enzyme at 1 time but denies any history of liver disease. No other new complaints. Past Medical History Past Medical History: Diagnosis Date Hyperlipidemia Hypertension Malignant neoplasm (CMS/HCC) Surgical History Past Surgical History: Procedure Laterality Date HX BUNIONECTOMY HX KNEE REPLACEMENT, TOTAL Medications Current Outpatient Medications Medication Sig Dispense Refill CALCIUM CITRATE-VITAMIN D3 ORAL Take by mouth. meloxicam (MOBIC) 15 mg tablet Take 15 mg by mouth daily. aspirin (ECOTRIN EC) 81 mg Tablet, Delayed Release (E.C.) Take 81 mg by mouth daily. hydroCHLOROthiazide 25 mg tablet Take 25 mg by mouth daily. omeprazole (PriLOSEC) 40 mg Capsule, Delayed Release(E.C.) Take 40 mg by mouth daily. metroNIDAZOLE (METROGEL) 0.75 % Gel Apply to affected area 2 times daily. simvastatin (ZOCOR) 20 mg tablet Take 20 mg by mouth daily at bedtime. No current facility-administered medications for this visit. Allergies No Known Allergies Immunizations: There is no immunization history on file for this patient. Family History Family History Problem Relation Name Age of Onset Prostate Cancer Father mets to bone Diabetes Father Heart Disease Father Diabetes Mother Heart Disease Mother Skin Cancer Mother Heart Disease Brother Diabetes Brother Diabetes Brother Heart Disease Brother Colon Cancer Brother Heart Disease Sister 6 sisters Diabetes Sister 6 sisters No Known Problems Child No Known Problems Child Social History Social History Tobacco Use Smoking status: Never Smokeless tobacco: Never Substance Use Topics Alcohol use: Yes Comment: Occasionally Review of Systems Constitutional: Patient did not mention fever; no night sweats; no anorexia; no weight loss; no fatique NEENT: Patient did not mention headache; no change in vision; no change in hearing; no sore throat;no dysphagia Respiratory: Patient did not mention shortness of breath; no pleuritic chest pain; no cough; no hemoptysis Cardiac: Patient did not mention cardiac-like chest pain; no palpitations; no orthopnea; no PND; noDOE Breasts: Patient did not mention tenderness; no masses GI: Patient did not mention abdominal pain; no nausea; no vomiting; no diarrhea; no hematochezia; no melena : Patient did not mention dysuria; no frequency; no hesitancy; no hematuria FLY RAIL OPERATOR: Musculosketetal: Patient did not mention bone pain; no arthralgia; no joint swelling; no myalgia; Skin: Patient did not mention pruritis; no rash; no petechiae; no ecchymoses Endocrine: Patient did not mention polydipsia; no polyuria; no unusual weight gain Neuro: Patient did not mention headache; no change in vision; no sensory changes; no muscle weakness; no confusion; no seizures Psych: Patient did not mention anxiety; no depression; Physical Exam Vitals: As per nursing note Constitutional: Well developed, well nourished, no acute distress, non-toxic appearance Teeth and gum. No signs of infection or swelling. Eyes: PERRL, conjunctiva normal HEENT: Atraumatic, external ears normal, nose normal, oropharynx moist, no pharyngeal exudates. no sinus tenderness Neck- normal range of motion, no tenderness, supple Respiratory: No respiratory distress, normal breath sounds, no rales, no wheezing Cardiovascular: Normal rate, normal rhythm, no murmurs, no gallops, no rubs GI: Soft, nondistended, normal bowel sounds, nontender, no splenomegaly, no hepatomegaly, no mass, no rebound, no guarding : No costovertebral angle tenderness Musculoskeletal: No edema, no tenderness, no deformities. Back- no tenderness Integument: Well hydrated, no rash, Digits and nails inspection normal Lymphatic: No lymphadenopathy noted Neurologic: Alert & oriented x 3, CN 2-12 normal, normal motor function, normal sensory function, no focal deficits noted Psychiatric: Speech and behavior appropriate ? labs No results found for this or any previous visit (from the past 24 hours). Labs from September 2024 showed WBC 3.7 hemoglobin 11.4 MCV 89.8 platelet 224,000 neutrophils 69% lymphocytes 16% 0.3% immature granulocytes. Pathology ? Imaging & Other Studies Performance Status? Assessment / Plan: ? Anemia and leukopenia. Patient is a pleasant 79-year-old female with history of hypertension, hyperlipidemia and skin cancer. She looks remarkably healthy for her age and quite active in miles about 5 miles a day. She just got retired last year from [employer] I have reviewed the labs that showed mild leukopenia and anemia. She denies any bleeding including melena and hematochezia. Deniesany B symptoms including night sweats fever chills and weight loss. I have discussed the differential diagnosis of leukopenia and anemia that includes possibility of nutritional deficiencies, autoimmune leukopenia, bone marrow disorders like myelodysplastic syndrome along with possibility of liver and spleen disorders. I will order the workup that will include CBC with differential, CMP, RODERICK, flow cytometric analysis for leukemia, B12 folic acid and iron studies as well as abdominal ultrasound.No need for bone marrow biopsy testing at this time. I have answered all the questions to patient'ssatisfaction. Follow-up with me in 2 weeks. Hypertension. Patient is on hydrochlorothiazide. GERD. She is on Prilosec. Hyperlipidemia. Patient is on simvastatin. Thank you very much for allowing me to participate in Dominga Pierre's evaluation and management.Please feel free to contact if I can be of any further assistance in your patient???s care requiring hematology or oncology evaluation. Sincerely, ? ? Jonny Bates M.D. cell TOBACCO COUNSELING She is not a tobacco/nicotine user. Jonyn Baets MD ,03/23/2025 11:19 AM ? Total time spent 60 minutes, two third of the total time spent counseling patient [id number]. CC:?Chaz Lloyd MD documented in this encounter Plan of Treatment Upcoming Encounters Date Type Department Care Team (Late st Contact Info) Description 04/15/2025 10:00 AM CDT Office Visit [facility] Oncology and Hematology - [place] [address] [phone] [place] [address] [place] [address] [address] [place] [address] Scheduled Orders Name Type Priority Associated Diagnoses Orde r Schedule CBC WITH DIFFERENTIAL Lab Stat Chronic anemia Expected: 03/23/2025, Expires: 03/23/2026 RODERICK SCREEN W/REFLEX Lab Routine Leukopenia, unspecified type Expected: 03/23/2025, Expires: 03/23/2026 COMPREHENSIVE METABOLIC PANEL Lab Stat Leukopenia, unspecified type Expected: 03/23/2025, Expires: 03/23/2026 FLOW CYTOMETRY PANEL Lab Routine Leukopenia, unspecified type Expected: 03/23/2025, Expires: 03/23/2026 FERRITIN Lab Routine Chronic anemia Expected: 03/23/2025, Expires: 03/23/2026 IRON, TIBC, AND PERCENT SATURATION Lab Routine Chronic anemia Expected: 03/23/2025, Expires: 03/23/2026 LACTATE DEHYDROGENASE Lab Routine Chronic anemia Expected: 03/23/2025, Expires: 03/23/2026 METHYLMALONIC ACID Lab Routine Chronic anemia Expected: 03/23/2025, Expires: 03/23/2026 TRANSFERRIN RECEPTOR TFR SOLUBLE Lab Routine Chronic anemia Expected: 03/23/2025, Expires: 03/23/2026 VITAMIN B12 AND FOLATE Lab Routine Chronic anemia Expected: 03/23/2025, Expires: 03/23/2026 US ABDOMEN COMPLETE Imaging Routine Leukopenia, unspecified type 1 Occurrences starting 03/23/2025 until 03/23/2026 documented as of this encounter Visit Diagnoses Diagnosis Chronic anemia- Primary Anemia, unspecified Leukopenia, unspecified type documented in this encounter
--- NOTE | 2025-03-23 11:22 | CY_PTH ---
PATIENT: Dominga Pierre LOC: ANHLAB #:[id number] AGE/SX: 79/F ROOM: RE03/23/[address]: Jonny Bates MD : 1945 BED: DIS: 03/23/2025 SPEC #: [id number] RECD: 03/23/25 12:02 STATUS: RASHAWN RE #: [id number] LUISANA: 03/23/25 11:[address]: Jonny Bates DEPT: [facility] Cytology RECD BY: Evon Mcginnis ENTERED: 03/23/25 12:03 SP TYPE: Cytology OTHR DR: Chaz Lloyd MD Tissues: A - Peripheral Blood Procedures: Flow Cytometry
[2025-03-23 11:28] LABS: Hematocrit 39.6 % (37.0-47.0); Hemoglobin 13.0 g/dL (12.0-15.0); Immature Granulocyte Percent A 0.2 % (0-0.5); Lymphocytes Absolute Auto 0.73 K/mm3 (0.9-3.2); Mean Corpuscular HGB Conc 32.8 g/dl (32-36); Mean Corpuscular Hemoglobin 29.9 pg (26-34); Mean Corpuscular Volume 91.0 fl (80-100); Nucleated Red Blood Cells Absolute Auto 0.000 K/mm3 (0.0-0.012); Nucleated Red Blood Cells Perc 0.0 % (0.0-0.2); Platelet Count Result 266 k/mm3 (150-375); Red Blood Count 4.35 M/mm3 (4.2-5.4); White Blood Count 5.3 K/mm3 (4.5-10.0)
[2025-03-23 12:18] LABS: Alanine Aminotransferase 25 U/L (6-35); Albumin Level 4.5 g/dL (3.5-5.1); Alkaline Phosphatase 121 U/L (38-126); Anion Gap 11 mmol/L (4-12); Aspartate Amino Transferase 37 U/L (14-36); Bilirubin,Total 0.5 mg/dL (0.2-1.3); Blood Urea Nitrogen 17 mg/dL (7-17); Calcium 9.1 mg/dL (8.4-10.2); Carbon Dioxide 27 mmol/L (22-30); Chloride 101 mmol/L (98-107); Estimated Glomerular Filt Rate > 60; Glucose 107 mg/dL (65-110); Iron 81 ug/dL (37-170); Potassium 3.8 mmol/L (3.4-5.0); Sodium 139 mmol/L (137-145); Total Protein 7.9 g/dL (6.3-8.2)
--- OUTSIDE RECORDS SUMMARY | 2025-03-23 12:19 | XMS_ITS | Clinical Summary ---
Author Organization [facility] tamayo [facility] Address [address] [place] [address] Care Team Providers Care Furniture Technician Name Role Phone Unavailable Primary Care Provider Unavailabl e Allergies No known active allergies Medications aspirin (ECOTRIN EC) 81 mg Tablet, Delayed Release (E.C.) Take 81 mg by mouth daily. Active hydroCHLOROthia zide 25 mg tablet Take 25 mg by mouth daily. Active omeprazole (PriLOSEC) 40 mg Capsule, Delayed Release(E.C.) Take 40 mg by mouth daily. Active metroNIDAZOLE (METROGEL) 0.75 % Gel Apply to affected area 2 times daily. Active simvastatin (ZOCOR) 20 mg tablet Take 20 mg by mouth daily at bedtime. Active CALCIUM CITRATE-VITAMIN D3 ORAL Take by mouth. Active meloxicam (MOBIC) 15 mg tablet Take 15 mg by mouth daily. Active Active Problems No known active problems Encounters Date Type Department Care Team Description 03/23/2025 10:30 AM CDT Office Visit [facility] Oncology and Hematology - [place] [address] [facility] [address] [place] [address] Jonny Bates MD Chronic anemia (Primary Dx); Leukopenia, unspecified type from Last 3 Months Family History Medical History Relation Name Comments Diabetes Brother 1 Heart Disease Brother 1 Colon Cancer Brother 2 Diabetes Brother 2 Heart Disease Brother 2 No Known Problems Child 1 No Known Problems Child 2 Diabetes Father Heart Disease Father Prostate Cancer Father mets to bone Diabetes Mother Heart Disease Mother Skin Cancer Mother Diabetes Sister 6 sisters Heart Disease Sister 6 sisters Relation Name Status Comments Brother 1 Brother 2 Child 1 Alive Child 2 Alive Father Mother Sister 6 sisters Unknown Social History Tobacco Use Types Packs/Day Years [...] Mass Index 23.86 03/23/2025 10:19 AM CDT Plan of Treatment Upcoming Encounters Date Type Department Care Team (Late st Contact Info) Description 04/15/2025 10:00 AM CDT Office Visit [facility] Oncology and Hematology - [place] [address] [facility] [address] [place] [address] Jonny Bates MD [address] [facility] [address] [place] [address] Health Maintenance Due Date Last Done Comments PNEUMOCOCCAL VACCINE 50+ YEA RS (1 of 1 - PCV) 1995 ZOSTER VACCINE (1 of 2) 1995 DTAP/TDAP/TD VACCINES (2 - Td or Tdap) 03/05/2019 RSV VACCINE (60+ or ) (1 - 1-dose 75+ series) 2020 OSTEOPOROSIS SCREENING 06/06/2023 06/06/2018, 2017 [place] Prev entative Visit/Annual Wellness Visit 07/02/2024 INFLUENZA VACCINE (#1) 2025 [facility]
--- OUTSIDE RECORDS SUMMARY | 2025-03-23 12:19 | XMS_ITS | Encounter Summary ---
Author Organization [facility] Address [address] [place] [address] Care Team Providers Care Clothes Drier Assembler Name Role Phone Chaz Lloyd MD Primary Care Provider [phone] Encounter Details Date Type Department Care Team (Late st Contact Info) Description 05/16/2024 Lab Requisition [facility] - DermPath Lab [address] [facility] [place] [phone] Wander Anne MD [address] [place] [address] Social History Tobacco Use Types Packs/Day Years Used Date Smoking Tobacco: Never Assessed Comments Unknown Sex and Gender Information Value Date Recorded Sex Assigned at Not on file Legal Sex Female 2:19 PM TILE SPRAYER Gender Identity Not on file Sexual Orientation Not on file documented as of this encounter Plan of Treatment Not on file documented as of this encounter Procedures Procedure Name Priority Date/Time Associated Diagnosis Comments DERMATOPATHOLOGY Routine 05/14/2024 3:33 AM TILE SPRAYER documented in this encounter Results * DERMATOPATHOLOGY (05/14/2024 3:33 AM TILE SPRAYER) Case Report Dermatopathology Report Case: [id number] Authorizing Provider: Wander Anne MD Collected: 05/14/2024 03:33 AM Ordering Location: [facility] - Received: 05/16/2024 03:28 PM DermPath Lab Pathologist: Vanna Noguera MD Specimen: Skin, above mid left eyebrow 1:26 PM [facility] DERMATOPATHOLOGY LABORATORY Final Diagnosis Specimen A. 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 The specimen consists of a shave biopsy measuring 6x6x1 mm. Jar 1:26 PM [facility] DERMATOPATHOLOGY LABORATORY Microscopic Description Specimen A. SKIN, above mid left eyebrow: There is focal parakeratosis. The lower half of the epidermis shows disorderly maturation of keratinocytes with nuclear pleomorphism. In addition, there are nests of cytologically bland melanocytes within the dermis that mature with depth. 1:26 PM [facility] DERMATOPATHOLOGY LABORATORY Disclaimer An external and internal positive and negative controls are appropriate for the histochemical, immunohistochemical and immunofluorescence stain(s) in this case (if any), except where stated explicitly. The performance characteristics of the stain(s) cited in this report were developed and its performance characteristic determined by the Dermatopathology Laboratory at [facility], directed by Dr. Ehsan Donaldson. These tests need not be, and therefore are not, approved by the [place] Food and Drug Administration. The tests are used for clinical purposes. Billing Codes Specimen Charges Stain Charges 95198 1 4 1:26 PM [facility] DERMATOPATHOLOGY LABORATORY Embedded Images 4 1:26 PM [facility] DERMATOPATHOLOGY LABORATORY Pathology/Cytolo gy TISSUE SPECIMEN FROM SKIN / Unknown 05/14/2024 3:33 AM TILE SPRAYER 05/16/2024 3:28 PM TILE SPRAYER Wander Anne MD LAB - PATHOLOGY/CYTOLOGY ORD ERABLES Final Result DERMATOPATHOLOGY LABORATORY [facility] - Department of Dermatology [facility] Specialized Medicine [address] [facility], [address]rd [address] [phone] documented in this encounter Visit Diagnoses Not on filedocumented in this encounter Care Teams Clothes Drier Assembler Relationship Specialty Start Date End Date Chaz Lloyd MD [address] [facility] [address] [place] [address] PCP - General Family Medicine 06/09/24 documented as of this encounter
--- OUTSIDE RECORDS SUMMARY | 2025-03-23 12:19 | XMS_ITS | Clinical Summary ---
Author Organization [facility] [address] Address [address] [place] [address] Care Team Providers Care Bank Guard Name Role Phone Chaz Lloyd MD Primary [...] Mother Diabetes mellit us; Heart attack Mother [place]; Hypertension Mother Hypertension; Breast cancer Niece Diabetes [...] on file Legal Sex Female 12:50 AM HVAC SERVICE MANAGER Gender Identity Not on file Sexual Orientation [...] 36.5 C (97.7 F) 08/27/2020 8:09 AM HVAC SERVICE MANAGER Respiratory Rate - - Oxygen Saturation 97% 11/16/2020 11:11 AM CDT Inhaled Oxygen Concentration - - Weight 61.2 kg (135 lb) 03/07/2024 7:42 AM CDT Height 162.6 cm (5' 4) 03/07/2024 7:42 AM CDT Body Mass Index [...] Density Scan 06/06/2020 06/06/2018 Influenza Vaccine (#1) 2025 03/03/2017, 2013 Breast Cancer Screening-Mammogram Discontinued 03/07/2024, 01/09/2023, 11/18/2021, Additional history exists Procedures Procedure Name Priority Date/Time Associated Diagnosis Comments SCREENING MAMMOGRAM BILATERAL W DAWIT Schedule Routine, Read Routine (OP Routine) 03/07/2024 7:49 AM CDT Screening mammogram, encounter for DEXA AXIAL SKELETON BONE DENSITY 1 OR MORE SITES Schedule Routine, Read Routine (OP Routine) 06/06/2018 9:11 AM HVAC SERVICE MANAGER Post-menopausal from Last 3 Months or Most [...] 1 or 2 Site (06/06/2018 9:11 AM HVAC SERVICE MANAGER) Anatomical Region Laterality Modality Body N/A Other 06/06/2018 9:14 AM HVAC SERVICE MANAGER Impressions 06/06/2018 9:15 AM HVAC SERVICE MANAGER 1. WHO CLASSIFICATION FOR LUMBAR SPINE IS [...] signed by: Severino Marquez 06/06/2018 9:15 AM HVAC SERVICE MANAGER EXAM: DEXA Bone Density Axial HISTORY: Asymptomatic [...] Maintenance Insurance [employer] CHOICE MEDICARE PPO MEDICARE [facility] [employer] CHOICE MEDICARE PPO [employer] CHOICE MEDICARE PPO Care Teams Bank Guard Relationship Specialty Start Date End Date Chaz Lloyd MD [address] [facility] [address] [place] [address] PCP - General 02/27/17
--- OUTSIDE RECORDS SUMMARY | 2025-03-23 12:19 | XMS_ITS | Clinical Summary ---
Author Organization [facility] Address [address] [place] [address] Care Team Providers Care Senior Wind Energy Consultant Name Role Phone Chaz Lloyd MD Primary Care Provider [phone] Source Comments [facility],non-owned Affiliates and Associated Physician Practices is amultiple site organization consisting of ambulatory clinics and hospital sitesin [place]. This disclosure is being madepursuant to the Care Everywhere program and may not contain all information available regarding this patient. Last updated 18.[facility] Allergies Active Allergy Reactions Criticality Noted Date [...] on file Legal Sex Female 2:19 PM ELECTRONICS PARTS SALES REPRESENTATIVE Gender Identity Not on file Sexual Orientation Not on file Plan of Treatment Health Maintenance Due Date Last Done Comments DTAP/TDAP/TD VACCINES (1 - Tdap) 1964 PNEUMOCOCCAL VACCINE 50+ (1 of 1 - PCV) 1995 ZOSTER VACCINE (1 of 2) 1995 Respiratory Syncytial Virus (RSV) Vaccine Pt: or over 60 yrs (1 - 1-dose 75+ series) 2020 DEPRESSION SCREENING 07/02/2024 COVID-19 VACCINE (1 - 2023-2 5 season) 2025 INFLUENZA VACCINE (#1) 2025 BONE DENSITY TESTING Completed 06/06/2018 HEPATITIS [...] complete this topic Insurance [employer] Care Teams Senior Wind Energy Consultant Relationship Specialty Start Date End Date Chaz Lloyd MD [address] [place] [address] PCP - General Family Medicine 06/09/24
--- OUTSIDE RECORDS SUMMARY | 2025-03-23 12:19 | XMS_ITS | Encounter Summary ---
Author Organization [facility] Address [address] [place] [address] Care Team Providers Care Industrial Engineering Technician Name Role Phone Chaz Lloyd MD Primary Care Provider Reason for Visit * Reason Onset Date Comments Scheduling Appointments 10/27/2020 Confirmi ng mammogram appt- no answer Encounter Details Date Type Department Care Team (Late st Contact Info) Description 10/27/2020 Telephone [facility] [address] [place] [address] [phone] [address] Scheduling Appointments (Confirming mammogram appt- no answer) Social History Tobacco Use Types Packs/Day Years Used Date Smoking Tobacco: Never Assessed Alcohol Use Standard Drinks/Week Comments No 0 (1 standard drink = 0.6 oz pur e alcohol) Comments No Sex and Gender Information Value Date Recorded Sex Assigned at Not on file Legal Sex Female 12:50 AM BUFFER NICKEL Gender Identity Not on file Sexual Orientation Not on file documented as of this encounter Plan of Treatment Not on file documented as of this encounter Visit Diagnoses Not on filedocumented in this encounter Care Teams Industrial Engineering Technician Relationship Specialty Start Date End Date Chaz Lloyd MD [address] [facility] [address] [place] [address] PCP - General 02/27/17 documented as of this encounter
[2025-03-23 12:28] LABS: Percent Iron Saturation 21 % (20-50)
[2025-03-23 12:59] LABS: Ferritin 37.80 ng/mL (11.1-264)
[2025-03-23 13:29] LABS: Vitamin B12 694.0 pg/mL (239-931)
[2025-03-24 14:08] LABS: ANA by IFA Rfx Titer/Pattern Negative (.)
== END 2025-03-23 11:07 | disposition home or self-care (01) ==
LOC: ANHLAB 11:07
PROVIDERS: PCP Family Medicine; Visit Provider Internal Medicine Hematology & Oncology
DX: D72.819 Decreased white blood cell count, unspecified (principal); D64.9 Anemia, unspecified
CPT/HCPCS: 36415; 80053; 82607; 82728; 82746; 83540; 83550; 83615; 84238; 85025; 86038; 88184